=== PATIENT | female | born 1945 | race Caucasian/White ===

== ENCOUNTER 2019-01-02 21:45 | Inpatient (IN) | payer MEDICARE ==
[2019-01-02] MEDS ORDERED: Sodium Chloride 0.9% 1,000 ML IV SCH (22:30)
--- NOTE | 2019-01-02 22:30 | EDM.PDOC ---
ED HPI GENERAL MEDICAL PROBLEM - General Chief Complaint: Fever Stated Complaint: MEDICAL [facility] Time Seen by Provider: 01/02/19 22:00 Source of Information: Reports: EMS, RN Notes Reviewed History Limitations: Reports: Other (Confusion and expressive aphasia from previous stroke) - History of Present Illness INITIAL COMMENTS - FREE TEXT/NARRATIVE: 73-year-old [facility] patient with a fever today, confusion, hypoxia and one emesis. No history from the patient herself. She does deny shortness of breath or cough, but she also denies emesis and there is emesis documented in the nursing notes. Duration: Day(s): (Fever for one day) Associated Symptoms: Reports: Confusion, Fever/Chills, Malaise, Nausea/Vomiting , Weakness - Related Data Allergies Allergy/AdvReac Type Severity Reaction Status Date / Time lisinopril Allergy Cannot Verified 01/02/19 22:29 Remember Home Meds: Home Meds Furosemide [Lasix] 40 mg PO DAILY tablet 09/28/14 [Rx] Aspirin [Adult Low Dose Aspirin EC] 81 mg PO DAILY 07/02/15 [History] Carvedilol [Coreg] 3.125 mg PO BID 07/02/15 [History] Warfarin [Coumadin] 4 mg PO MoWeFr@13 07/02/15 [History] Warfarin [Coumadin] 6 mg PO SuTuThSa@1300 07/02/15 [History] Cholecalciferol (Vitamin D3) [Vitamin D3] 2,000 unit PO DAILY 01/02/19 [History] Escitalopram [Lexapro] 10 mg PO DAILY 01/02/19 [History] Losartan Potassium 75 mg PO DAILY 01/02/19 [History] Simvastatin [Zocor] 10 mg PO BEDTIME 01/02/19 [History] amLODIPine Besylate [Norvasc] 10 mg PO DAILY 01/02/19 [History] metFORMIN HCl [Metformin HCl] 500 mg PO DAILY 01/02/19 [History] Lactobacillus Rhamnosus GG [Culturelle] 1 cap PO BID 7 Days #14 cap 01/06/19 [Rx ] Levofloxacin 750 mg PO ASDIRECTED 7 Days #3 tablet 01/06/19 [Rx] Past Medical History HEENT History: Reports: Cataract, Hard of Hearing, Impaired Vision Cardiovascular History: Reports: High Cholesterol, Hypertension Genitourinary History: Reports: Urinary Incontinence Musculoskeletal History: Reports: Other (See Below) Other Musculoskeletal History: Osteomyelitis Neurological History: Reports: CVA Psychiatric History: Reports: Depression Endocrine/Metabolic History: Reports: Diabetes, Type II Other Dermatologic History: left 2nd toe osteo - Infectious Disease History Infectious Disease History: Reports: Chicken Pox Other Infectious Disease History: unknown - Past Surgical History HEENT Surgical History: Reports: Cataract Surgery, Oral Surgery, Tonsillectomy Social & Family History - Caffeine Use Caffeine Use: Reports: None ED ROS GENERAL - Review of Systems Review Of Systems: Unable To Obtain (Except for nursing notes) Constitutional: Reports: Fever, Chills Respiratory: Reports: Shortness of Breath GI/Abdominal: Reports: Vomiting Skin: Reports: Other (Significant erythema in the groin) Neurological: Reports: Confusion ED EXAM, GENERAL - Physical Exam Exam: See Below Exam Limited By: Other (Confusion, febrile) General Appearance: Alert, No Apparent Distress (Looks uncomfortable but not distressed) Eye Exam: Bilateral Eye: EOMI (No jaundice) Head: Atraumatic Respiratory/Chest: No Respiratory Distress, Lungs Clear Cardiovascular: Regular Rate, Rhythm GI/Abdominal: Other (Morbidly obese, she does not reactive with tenderness to palpation) Neurological: Alert, Confused Skin Exam: Warm, Dry, Other (Significant erythema in the groin, periurethral area and vulva) Course - Vital Signs Last Recorded V/S: Last Vital Signs Temp 98.4 F 01/06/19 10:08 Pulse 59 L 01/06/19 10:08 Resp 18 01/06/19 10:08 BP 139/50 L 01/06/19 10:08 Pulse Ox 93 L 01/06/19 12:00 - Orders/Labs/Meds Labs: Laboratory Tests 01/02/19 01/02/19 01/02/19 Range/Units 22:35 22:35 22:35 WBC 16.6 H (4.5-11.0) K/uL RBC 4.46 (3.30-5.50) M/uL Hgb 13.0 (12.0-15.0) g/dL Hct 39.5 (36.0-48.0) % MCV 89 (80-98) fL MCH 29 (27-31) pg MCHC 33 (32-36) % Plt Count 223 (150-400) K/uL Neut % (Auto) 92 H (36-66) % Lymph % (Auto) 3 L (24-44) % [place] % (Auto) 5 (2-6) % Eos % (Auto) 0 L (2-4) % Baso % (Auto) 0 (0-1) % PT (9.5-12.0) sec INR (0.80-1.20) Sodium 138 L (140-148) mmol/L Potassium 3.9 (3.6-5.2) mmol/L Chloride 102 (100-108) mmol/L Carbon Dioxide 24 (21-32) mmol/L Anion Gap 15.9 H (5.0-14.0) mmol/L BUN 30 H (7-18) mg/dL Creatinine 1.7 H (0.6-1.0) mg/dL Est Cr Clr Drug Dosing 29.09 mL/min Estimated GFR (MDRD) 30 L (>60) Glucose 203 H (74-106) mg/dL Lactic Acid 1.5 (0.4-2.0) mmol/L Calcium 8.6 (8.5-10.1) mg/dL Total Bilirubin 0.6 D (0.2-1.0) mg/dL AST 18 (15-37) U/L ALT 19 (12-78) U/L Alkaline Phosphatase 122 H (46-116) U/L Total Protein 6.9 (6.4-8.2) g/dL Albumin 3.3 L (3.4-5.0) g/dL Globulin 3.6 H (2.3-3.5) g/dL Albumin/Globulin Ratio 0.9 L (1.2-2.2) Urine Color (YELLOW) Urine Appearance (CLEAR) Urine pH (5.0-8.0) Ur Specific [place] (1.008-1.030) Urine Protein (NEGATIVE) mg/dL Urine Glucose (UA) (NEGATIVE) mg/dL Urine Ketones (NEGATIVE) mg/dL Urine Occult Blood (NEGATIVE) Urine Nitrite (NEGATIVE) Urine Bilirubin (NEGATIVE) Urine Urobilinogen (0.2-1.0) EU/dL Ur Leukocyte Esterase (NEGATIVE) Urine RBC (0-5) Urine WBC (0-5) Ur Epithelial Cells Amorphous Sediment Urine Bacteria Urine Mucus 01/02/19 01/02/19 Range/Units 22:35 23:26 WBC (4.5-11.0) K/uL RBC (3.30-5.50) M/uL Hgb (12.0-15.0) g/dL Hct (36.0-48.0) % MCV (80-98) fL MCH (27-31) pg MCHC (32-36) % Plt Count (150-400) K/uL Neut % (Auto) (36-66) % Lymph % (Auto) (24-44) % [place] % (Auto) (2-6) % Eos % (Auto) (2-4) % Baso % (Auto) (0-1) % PT 28.5 H (9.5-12.0) sec INR 2.80 H (0.80-1.20) Sodium (140-148) mmol/L Potassium (3.6-5.2) mmol/L Chloride (100-108) mmol/L Carbon Dioxide (21-32) mmol/L Anion Gap (5.0-14.0) mmol/L BUN (7-18) mg/dL Creatinine (0.6-1.0) mg/dL Est Cr Clr Drug Dosing mL/min Estimated GFR (MDRD) (>60) Glucose (74-106) mg/dL Lactic Acid (0.4-2.0) mmol/L Calcium (8.5-10.1) mg/dL Total Bilirubin (0.2-1.0) mg/dL AST (15-37) U/L ALT (12-78) U/L Alkaline Phosphatase (46-116) U/L Total Protein (6.4-8.2) g/dL Albumin (3.4-5.0) g/dL Globulin (2.3-3.5) g/dL Albumin/Globulin Ratio (1.2-2.2) Urine Color Yellow (YELLOW) Urine Appearance Cloudy A (CLEAR) Urine pH 5.5 (5.0-8.0) Ur Specific [place] 1.015 (1.008-1.030) Urine Protein 100 H (NEGATIVE) mg/dL Urine Glucose (UA) Normal (NEGATIVE) mg/dL Urine Ketones Negative (NEGATIVE) mg/dL Urine Occult Blood Large (NEGATIVE) Urine Nitrite Negative (NEGATIVE) Urine Bilirubin Negative (NEGATIVE) Urine Urobilinogen Normal (0.2-1.0) EU/dL Ur Leukocyte Esterase Small (NEGATIVE) Urine RBC 75-100 H (0-5) Urine WBC 0-5 (0-5) Ur Epithelial Cells Few Amorphous Sediment Few Urine Bacteria Many Urine Mucus Not seen Meds: Medications Discontinued Medications Generic Name Dose Route Start Last Admin Trade Name Freq PRN Reason Stop Dose Admin Acetaminophen 650 mg 01/02/19 23:37 01/03/19 01:53 Tylenol PO 650 mg Q4H PRN Administration Pain (Mild 1-3)/fever Albuterol 2.5 mg 01/05/19 21:42 Proventil Neb Soln NEB Q4H PRN Shortness of Breath Amlodipine Besylate 10 mg 01/03/19 10:15 01/06/19 08:31 Norvasc PO 10 mg DAILY JASON Administration Carvedilol 3.125 mg 01/03/19 10:15 01/06/19 08:30 Coreg PO 3.125 mg BID JASON Administration Cholecalciferol 50 mcg 01/03/19 10:15 01/06/19 08:31 Vitamin D3 PO 50 mcg DAILY JASON Administration Escitalopram Oxalate 10 mg 01/03/19 10:15 01/06/19 08:30 Lexapro PO 10 mg DAILY JASON Administration Furosemide 40 mg 01/03/19 10:15 01/06/19 08:30 Lasix PO 40 mg DAILY JASON Administration Sodium Chloride 1,000 mls @ 500 mls/hr 01/02/19 22:30 01/02/19 22:45 Normal Saline IV 500 mls/hr ASDIRECTED JASON Administration Sodium Chloride 1,000 mls @ 150 mls/hr 01/02/19 23:45 01/03/19 12:14 Normal Saline IV 150 mls/hr ASDIRECTED JASON Administration Vancomycin HCl 1.5 gm/ Sodium 250 mls @ 150 mls/hr 01/02/19 23:45 01/03/19 02 :07 Chloride IV 150 mls/hr Q12H JASON Administration Piperacillin Sod/Tazobactam 50 mls @ 100 mls/hr 01/03/19 00:15 01/03/19 05:42 Sod 3.375 gm/ Sodium Chloride IV 100 mls/hr Q6H JASON Administration Piperacillin/Tazobactam/ 50 mls @ 100 mls/hr 01/03/19 12:00 01/05/19 05:52 Dextrose 2.25 gm/ Premix IV 100 mls/hr Q6H JASON Administration Vancomycin HCl 1.65 gm/ Sodium 250 mls @ 150 mls/hr 01/03/19 22:00 01/04/19 21:46 Chloride IV 150 mls/hr Q24H JASON Administration Levofloxacin/Dextrose 750 mg/ 150 mls @ 150 mls/hr 01/04/19 21:00 01/04/19 23 :18 Premix IV 150 mls/hr Q48H JASON Administration Insulin Human Lispro 0 unit 01/03/19 07:00 01/06/19 11:37 Humalog SUBCUT Not Given QIDACANDBED [facility] Protocol Lactobacillus Rhamnosus 1 cap 01/04/19 09:30 01/06/19 08:30 Culturelle PO 1 cap BID JASON Administration Levofloxacin 250 mg/ 750 mg 01/06/19 07:30 01/06/19 07:42 Levofloxacin 500 mg PO 750 mg Q48H JASON Administration Lidocaine HCl 10 ml 01/02/19 23:11 01/02/19 23:29 Xylocaine 2% Jelly MUCMEM 01/02/19 23:12 10 ml ONETIME ONE Administration Losartan Potassium 75 mg 01/03/19 10:15 01/06/19 09:48 Cozaar PO 75 mg DAILY JASON Administration Ondansetron HCl 4 mg 01/02/19 23:37 Zofran IV Q4H PRN Nausea/Vomiting Ondansetron HCl 4 mg 01/04/19 09:19 Zofran Odt PO Q6H PRN Nausea/Vomiting Pantoprazole Sodium 40 mg 01/02/19 23:45 01/03/19 01:42 Protonix Iv IV 40 mg Q24H JASON Administration Pantoprazole Sodium 40 mg 01/03/19 21:00 01/05/19 20:36 Protonix PO 40 mg BEDTIME JASON Administration Potassium Chloride 40 meq 01/06/19 08:00 01/06/19 09:48 Klor-Con M20 PO 01/06/19 08:01 40 meq ONETIME ONE Administration Senna/Docusate Sodium 1 tab 01/02/19 23:37 Senna Plus PO BID PRN Constipation Simvastatin 10 mg 01/03/19 21:00 01/05/19 20:36 Zocor PO 10 mg BEDTIME JASON Administration Warfarin Sodium 4 mg 01/03/19 13:00 01/06/19 13:13 Coumadin PO 4 mg MoWeFr@1300 [facility] Administration Warfarin Sodium 5 mg/ Warfarin 6 mg 01/04/19 13:00 01/05/19 13:48 Sodium 1 mg PO 6 mg SuTuThSa@1300 [facility] Administration - Re-Assessments/Exams Free Text/Narrative Re-Assessment/Exam: 01/02/19 22:29 A mini catheter UA was attempted which was not tolerated by the patient to to her inflammation in the groin. A CBC, CMP, lactic acid and blood cultures were obtained as well as an INR. Portable chest x-ray ordered. IV was started and hydration with normal saline. UA was obtained. Many bacteria but no WBC. Dr Mccoy was consulted for admission for groin cellulitis, fever will need IV antibiotics and fluid support. Departure - Departure Time of Disposition: 00:58 Disposition: Admitted As Inpatient 67 Clinical Impression: Cellulitis Qualifiers: Site of cellulitis: other site Qualified Code(s): L03.818 - Cellulitis of other sites Blood in the urine Qualifiers: Hematuria type: unspecified type Qualified Code(s): R31.9 - Hematuria, unspecified Fever Qualifiers: Fever type: due to other condition Qualified Code(s): R50.81 - Fever presenting with conditions classified elsewhere - Discharge Information
[2019-01-02] MEDS ORDERED: Lidocaine 2% Jelly 10 ML Urojet MUCMEM ONE (23:11)
--- NOTE | 2019-01-02 23:16 | CRLCR ---
INDICATION: Fever TECHNIQUE: Chest 1 views COMPARISON: September 26, 2014 FINDINGS: Cardiovascular and mediastinum: Heart size and vasculature are normal in caliber and appearance. Lungs and pleural spaces: Lungs are clear except for a stable left perihilar granuloma. No sign of infiltrate or mass. No sign of pleural effusion. No pneumothorax. Bones and soft tissues: No significant findings. IMPRESSION: No acute findings and no significant changes from the prior exam. Dictated by Louie Stahl MD @ Jan 02 2019 11:13PM Signed by Dr. Louie Stahl @ Jan 02 2019 11:14PM
[2019-01-02] MEDS ORDERED: Ondansetron 4 MG/2 ML SDV IV PRN (23:37)
[2019-01-02] MEDS ORDERED: Acetaminophen 325 MG Tab PO PRN (23:37)
[2019-01-02] MEDS ORDERED: Pantoprazole 40 MG Vial IV SCH (23:45)
[2019-01-02] MEDS ORDERED: cefTRIAXone 2 GM in Sodium Chloride 0.9% 50 ML IV SCH (23:45)
[2019-01-03] MEDS: Sodium Chloride 0.9% 1,000 ML IV SCH ×2 (01:31→12:14)
[2019-01-03] MEDS: Piperacillin/Tazobactam 3.375 GM in Sodium Chloride 0.9% 50 ML IV SCH ×2 (01:32→05:42)
--- NOTE | 2019-01-03 09:09 | PCM.HP.2 ---
H&P History of Present Illness - General Date of Service: 01/02/19 Admit Problem/Dx: Admission Diagnosis/Problem Admission Diagnosis/Problem Cellulitis Source of Information: Patient History Limitations: Reports: No Limitations - History of Present Illness Initial Comments - Free Text/Narative: 73-year-old female with past medical history of peripheral vascular disease, on Coumadin medication, diabetes on metformin medication, hypertension, hyperlipidemia, CKD, VS MRSA infection, venous insufficiency came to the ED with a concerns of one episode of vomiting associated with altered mental status. Patient is a [facility] resident. Patient has confusional state associated with temperature 101 with that concerns patient transferred to the ED Patient denies any chest pain, exertional chest pain, breathing difficulty, upper respiratory infection symptoms, cough, congestion, diarrhea, constipation. Patient had 2 episodes of vomiting. Patient lab results showed WBC count is elevated along with a left shift. With lactic acid levels are 1.5. Patient is DNR/DNI. Patient received thousand mL of IV fluids in the ED. Other review of systems are not significant. - Related Data Allergies/Adverse Reactions: Allergies Allergy/AdvReac Type Severity Reaction Status Date / Time lisinopril Allergy Cannot Verified 01/02/19 22:29 Remember Home Medications: Home Meds Furosemide [Lasix] 40 mg PO DAILY tablet 09/28/14 [Rx] Aspirin [Adult Low Dose Aspirin EC] 81 mg PO DAILY 07/02/15 [History] Carvedilol [Coreg] 3.125 mg PO BID 07/02/15 [History] Warfarin [Coumadin] 4 mg PO MoWeFr@13 07/02/15 [History] Warfarin [Coumadin] 6 mg PO SuTuThSa@1300 07/02/15 [History] Cholecalciferol (Vitamin D3) [Vitamin D3] 2,000 unit PO DAILY 01/02/19 [History] Escitalopram [Lexapro] 10 mg PO DAILY 01/02/19 [History] Losartan Potassium 75 mg PO DAILY 01/02/19 [History] Simvastatin [Zocor] 10 mg PO BEDTIME 01/02/19 [History] amLODIPine Besylate [Norvasc] 10 mg PO DAILY 01/02/19 [History] metFORMIN HCl [Metformin HCl] 500 mg PO DAILY 01/02/19 [History] Past Medical History HEENT History: Reports: Cataract, Hard of Hearing, Impaired Vision Cardiovascular History: Reports: High Cholesterol, Hypertension, Other (See Below) Other Cardiovascular History: nonrheumatic aortic valve stenosis Gastrointestinal History: Reports: None Genitourinary History: Reports: Renal Disease, Urinary Incontinence Musculoskeletal History: Reports: Other (See Below) Other Musculoskeletal History: Osteomyelitis Neurological History: Reports: CVA, Neuropathy, Diabetic Psychiatric History: Reports: Depression Endocrine/Metabolic History: Reports: Diabetes, Type II, Obesity/BMI 30+ Hematologic History: Reports: Anemia Dermatologic History: Reports: Other (See Below) Other Dermatologic History: left 2nd toe osteo - Infectious Disease History Infectious Disease History: Reports: Chicken Pox Other Infectious Disease History: unknown - Past Surgical History Head Surgeries/Procedures: Reports: None HEENT Surgical History: Reports: Cataract Surgery, Oral Surgery, Tonsillectomy Cardiovascular Surgical History: Reports: None GI Surgical History: Reports: Colonoscopy Female Surgical History: Reports: None Endocrine Surgical History: Reports: None Neurological Surgical History: Reports: None Dermatological Surgical History: Reports: None Social & Family History - Family History Family Medical History: Noncontributory - Tobacco Use Smoking Status *Q: Never Smoker Second Hand Smoke Exposure: No - Caffeine Use Caffeine Use: Reports: Soda, Tea - Recreational Drug Use Recreational Drug Use: No H&P Review of Systems - Review of Systems: Review Of Systems: See Below General: Reports: Fever, Chills, Malaise, Weakness, Fatigue. Denies: Night Sweats, Diaphoresis Pulmonary: Denies: Shortness of Breath, Wheezing Cardiovascular: Denies: Chest Pain, Palpitations, Dyspnea on Exertion Gastrointestinal: Denies: Abdominal Pain, Bloody Stool, Constipation, Diarrhea Genitourinary: Denies: Dysuria, Frequency, Burning Musculoskeletal: Denies: Neck Pain, Shoulder Pain Skin: Denies: Cyanosis, Jaundice Psychiatric: Denies: Confusion, Depression Neurological: Denies: Confusion, Dizziness Hematologic/Lymphatic: Reports: Anemia. Denies: Easy Bleeding, Easy Bruising Exam - Exam Exam: See Below - Vital Signs Vital Signs: Last Vital Signs Temp 35.7 C 01/03/19 07:00 Pulse 57 L 01/03/19 07:00 Resp 18 01/03/19 07:00 BP 123/61 01/03/19 07:00 Pulse Ox 93 L 01/03/19 07:37 Weight: 124.738 kg - Exam General: Alert. No: Oriented Neck: Supple, Trachea Midline Lungs: Clear to Auscultation, Normal Respiratory Effort Cardiovascular: Regular Rate, Regular Rhythm GI/Abdominal Exam: Normal Bowel Sounds, Soft, Non-Tender, No Organomegaly, No Distention, No Abnormal Bruit Back Exam: Normal Inspection, Full Range of Motion Extremities: Normal Inspection, Other (status post amputation of toe). No: Non- Tender Skin: Warm, Dry (Maculopapular erythematic rash present on the perineal area, warm to touch, tenderness is positive) Psychiatric: Alert, Normal Affect, Normal Mood - Patient Data Lab Results Last 24 hrs: Laboratory Results - last 24 hr 01/02/19 01/02/19 01/02/19 Range/Units 22:35 22:35 22:35 WBC 16.6 H (4.5-11.0) K/uL RBC 4.46 (3.30-5.50) M/uL Hgb 13.0 (12.0-15.0) g/dL Hct 39.5 (36.0-48.0) % MCV 89 (80-98) fL MCH 29 (27-31) pg MCHC 33 (32-36) % Plt Count 223 (150-400) K/uL Neut % (Auto) 92 H (36-66) % Lymph % (Auto) 3 L (24-44) % [place] % (Auto) 5 (2-6) % Eos % (Auto) 0 L (2-4) % Baso % (Auto) 0 (0-1) % PT (9.5-12.0) sec INR (0.80-1.20) Sodium 138 L (140-148) mmol/L Potassium 3.9 (3.6-5.2) mmol/L Chloride 102 (100-108) mmol/L Carbon Dioxide 24 (21-32) mmol/L Anion Gap 15.9 H (5.0-14.0) mmol/L BUN 30 H (7-18) mg/dL Creatinine 1.7 H (0.6-1.0) mg/dL Est Cr Clr Drug Dosing 29.09 mL/min Estimated GFR (MDRD) 30 L (>60) Glucose 203 H (74-106) mg/dL Lactic Acid 1.5 (0.4-2.0) mmol/L Calcium 8.6 (8.5-10.1) mg/dL Total Bilirubin 0.6 D (0.2-1.0) mg/dL AST 18 (15-37) U/L ALT 19 (12-78) U/L Alkaline Phosphatase 122 H (46-116) U/L Total Protein 6.9 (6.4-8.2) g/dL Albumin 3.3 L (3.4-5.0) g/dL Globulin 3.6 H (2.3-3.5) g/dL Albumin/Globulin Ratio 0.9 L (1.2-2.2) Urine Color (YELLOW) Urine Appearance (CLEAR) Urine pH (5.0-8.0) Ur Specific [place] (1.008-1.030) Urine Protein (NEGATIVE) mg/dL Urine Glucose (UA) (NEGATIVE) mg/dL Urine Ketones (NEGATIVE) mg/dL Urine Occult Blood (NEGATIVE) Urine Nitrite (NEGATIVE) Urine Bilirubin (NEGATIVE) Urine Urobilinogen (0.2-1.0) EU/dL Ur Leukocyte Esterase (NEGATIVE) Urine RBC (0-5) Urine WBC (0-5) Ur Epithelial Cells Amorphous Sediment Urine Bacteria Urine Mucus 01/02/19 01/02/19 01/03/19 Range/Units 22:35 23:26 04:00 WBC 17.4 H (4.5-11.0) K/uL RBC 3.80 (3.30-5.50) M/uL Hgb 11.2 L (12.0-15.0) g/dL Hct 34.4 L (36.0-48.0) % MCV 91 (80-98) fL MCH 30 (27-31) pg MCHC 33 (32-36) % Plt Count 210 (150-400) K/uL Neut % (Auto) 91 H (36-66) % Lymph % (Auto) 4 L (24-44) % [place] % (Auto) 5 (2-6) % Eos % (Auto) 0 L (2-4) % Baso % (Auto) 0 (0-1) % PT 28.5 H (9.5-12.0) sec INR 2.80 H (0.80-1.20) Sodium (140-148) mmol/L Potassium (3.6-5.2) mmol/L Chloride (100-108) mmol/L Carbon Dioxide (21-32) mmol/L Anion Gap (5.0-14.0) mmol/L BUN (7-18) mg/dL Creatinine (0.6-1.0) mg/dL Est Cr Clr Drug Dosing mL/min Estimated GFR (MDRD) (>60) Glucose (74-106) mg/dL Lactic Acid (0.4-2.0) mmol/L Calcium (8.5-10.1) mg/dL Total Bilirubin (0.2-1.0) mg/dL AST (15-37) U/L ALT (12-78) U/L Alkaline Phosphatase (46-116) U/L Total Protein (6.4-8.2) g/dL Albumin (3.4-5.0) g/dL Globulin (2.3-3.5) g/dL Albumin/Globulin Ratio (1.2-2.2) Urine Color Yellow (YELLOW) Urine Appearance Cloudy A (CLEAR) Urine pH 5.5 (5.0-8.0) Ur Specific [place] 1.015 (1.008-1.030) Urine Protein 100 H (NEGATIVE) mg/dL Urine Glucose (UA) Normal (NEGATIVE) mg/dL Urine Ketones Negative (NEGATIVE) mg/dL Urine Occult Blood Large (NEGATIVE) Urine Nitrite Negative (NEGATIVE) Urine Bilirubin Negative (NEGATIVE) Urine Urobilinogen Normal (0.2-1.0) EU/dL Ur Leukocyte Esterase Small (NEGATIVE) Urine RBC 75-100 H (0-5) Urine WBC 0-5 (0-5) Ur Epithelial Cells Few Amorphous Sediment Few Urine Bacteria Many Urine Mucus Not seen 01/03/19 Range/Units 04:00 WBC (4.5-11.0) K/uL RBC (3.30-5.50) M/uL Hgb (12.0-15.0) g/dL Hct (36.0-48.0) % MCV (80-98) fL MCH (27-31) pg MCHC (32-36) % Plt Count (150-400) K/uL Neut % (Auto) (36-66) % Lymph % (Auto) (24-44) % [place] % (Auto) (2-6) % Eos % (Auto) (2-4) % Baso % (Auto) (0-1) % PT (9.5-12.0) sec INR (0.80-1.20) Sodium 141 (140-148) mmol/L Potassium 3.7 (3.6-5.2) mmol/L Chloride 106 (100-108) mmol/L Carbon Dioxide 26 (21-32) mmol/L Anion Gap 8.7 (5.0-14.0) mmol/L BUN 29 H (7-18) mg/dL Creatinine 1.7 H (0.6-1.0) mg/dL Est Cr Clr Drug Dosing 29.01 mL/min Estimated GFR (MDRD) 30 L (>60) Glucose 179 H (74-106) mg/dL Lactic Acid (0.4-2.0) mmol/L Calcium 8.2 L (8.5-10.1) mg/dL Total Bilirubin 0.6 (0.2-1.0) mg/dL AST 19 (15-37) U/L ALT 17 (12-78) U/L Alkaline Phosphatase 95 (46-116) U/L Total Protein 5.9 L (6.4-8.2) g/dL Albumin 2.8 L (3.4-5.0) g/dL Globulin 3.1 (2.3-3.5) g/dL Albumin/Globulin Ratio 0.9 L (1.2-2.2) Urine Color (YELLOW) Urine Appearance (CLEAR) Urine pH (5.0-8.0) Ur Specific [place] (1.008-1.030) Urine Protein (NEGATIVE) mg/dL Urine Glucose (UA) (NEGATIVE) mg/dL Urine Ketones (NEGATIVE) mg/dL Urine Occult Blood (NEGATIVE) Urine Nitrite (NEGATIVE) Urine Bilirubin (NEGATIVE) Urine Urobilinogen (0.2-1.0) EU/dL Ur Leukocyte Esterase (NEGATIVE) Urine RBC (0-5) Urine WBC (0-5) Ur Epithelial Cells Amorphous Sediment Urine Bacteria Urine Mucus Result Diagrams: 01/03/19 04:00 01/03/19 04:00 - Problem List (1) Cellulitis SNOMED Code(s): 436222246 ICD Code: L03.90 - CELLULITIS, UNSPECIFIED Status: Acute Current Visit: Yes (2) SIRS (systemic inflammatory response syndrome) SNOMED Code(s): 601316842 ICD Code: R65.10 - SIRS OF NON-INFECTIOUS ORIGIN W/O ACUTE ORGAN DYSFUNCTION Status: Acute Current Visit: Yes (3) Hypertension SNOMED Code(s): 08235864 ICD Code: I10 - ESSENTIAL (PRIMARY) HYPERTENSION Status: Acute Current Visit: Yes (4) Hyperlipemia SNOMED Code(s): 00175992 ICD Code: E78.5 - HYPERLIPIDEMIA, UNSPECIFIED Status: Acute Current Visit : Yes (5) MRSA (methicillin resistant Staphylococcus aureus) SNOMED Code(s): 917523629 ICD Code: A49.02 - METHICILLIN RESIS STAPH INFECTION, UNSP SITE Status: Acute Current Visit: Yes (6) CKD (chronic kidney disease) SNOMED Code(s): 243179541 ICD Code: N18.9 - CHRONIC KIDNEY DISEASE, UNSPECIFIED Status: Acute Current Visit: Yes (7) Venous insufficiency SNOMED Code(s): 65047098 ICD Code: I87.2 - VENOUS INSUFFICIENCY (CHRONIC) (PERIPHERAL) Status: Acute Current Visit: Yes (8) Anticoagulated on Coumadin SNOMED Code(s): 85345495 ICD Code: Z51.81 - ENCOUNTER FOR THERAPEUTIC DRUG LEVEL MONITORING; Z79.01 - TALENT ACQUISITION PROGRAM MANAGER (CURRENT) USE OF ANTICOAGULANTS Status: Acute Priority: Medium Current Visit: No (9) Status post CVA SNOMED Code(s): 702795976 ICD Code: Z86.73 - PRSNL HX OF TIA (TIA), AND CEREB INFRC W/O RESID DEFICITS Status: Acute Priority: Medium Current Visit: No (10) Amputated toe SNOMED Code(s): 407326387 ICD Code: Z89.429 - ACQUIRED ABSENCE OF OTHER TOE(S), UNSPECIFIED SIDE Status: Chronic Current Visit: No Problem List Initiated/Reviewed/Updated: Yes Orders Last 24hrs: Active Orders 24 hr Category Date Time Status Patient Status [ADT] Routine ADT 01/02/19 23:38 Active Accu Check [Blood Glucose Check, Bedside] [RC] Care 01/02/19 23:51 Active WITHMEALSANDBED Bedrest Bedside Commode [RC] ASDIRECTED Care 01/02/19 23:37 Active Communication Order [RC] ROUTINE Care 01/02/19 23:49 Active Communication Order [RC] ROUTINE Care 01/02/19 23:54 Active Dietary Supplements [RC] BIDMEALS Care 01/03/19 00:07 Active Height and Weight [RC] DAILY Care 01/02/19 23:37 Active Intake and Output [RC] QSHIFT Care 01/02/19 23:39 Active Oxygen Therapy [RC] PRN Care 01/02/19 23:38 Active Pulse Oximetry [RC] PRN Care 01/02/19 23:40 Active VTE/DVT Education [RC] Per Unit Routine Care 01/02/19 23:38 Active Vital Signs [RC] Q4H Care 01/02/19 23:38 Active OT Evaluation and Treatment [CONS] Routine Cons 01/02/19 23:37 Active PT Evaluation and Treatment [CONS] Routine Cons 01/02/19 23:37 Active 2 Gram Sodium Diet [DIET] Diet 01/03/19 Breakfast Active Consistent Carbohydrate Diet [DIET] Diet 01/03/19 Breakfast Active CULTURE BLOOD [BC] Urgent Lab 01/02/19 22:35 Received CULTURE BLOOD [BC] Urgent Lab 01/02/19 22:40 Received CULTURE URINE [RM] Routine Lab 01/03/19 00:01 Received Acetaminophen [Tylenol] Med 01/02/19 23:37 Active 650 mg PO Q4H PRN Docusate Sodium/Sennosides [Senna Plus] Med 01/02/19 23:37 Active 1 tab PO BID PRN Insulin Lispro [HumaLOG] Med 01/03/19 07:00 Active See Protocol SUBCUT QIDACANDBED Ondansetron [Zofran] Med 01/02/19 23:37 Active 4 mg IV Q4H PRN Pantoprazole [ProTONIX IV] Med 01/02/19 23:45 Active 40 mg IV Q24H Piperacillin/Tazobactam/Dext [Zosyn in Dextrose Iso- Med 01/03/19 12:00 Active Osmotic] 2.25 gm Premix Bag 1 bag IV Q6H Sodium Chloride 0.9% [Normal Saline] 1,000 ml Med 01/02/19 23:45 Active IV ASDIRECTED Vancomycin 1.8 gm Med 01/03/19 22:00 Active Sodium Chloride 0.9% [Normal Saline] 250 ml IV Q24H Blood Culture x2 Reflex Set [OM.PC] Urgent Oth 01/02/19 22:24 Ordered Resuscitation Status Routine Resus Stat 01/02/19 23:37 Ordered Medication Orders Acetaminophen (Tylenol) 650 mg PO Q4H PRN PRN Reason: Pain (Mild 1-3)/fever Last Admin: 01/03/19 01:53 Dose: 650 mg Sodium Chloride (Normal Saline) 1,000 mls @ 150 mls/hr IV ASDIRECTED JASON Last Admin: 01/03/19 01:31 Dose: 150 mls/hr Vancomycin HCl 1.8 gm/ Sodium (Chloride) 250 mls @ 150 mls/hr IV Q24H JASON Piperacillin/Tazobactam/ (Dextrose 2.25 gm/ Premix) 50 mls @ 100 mls/hr IV Q6H JASON Insulin Human Lispro (Humalog) 0 unit SUBCUT QIDACANDBED [facility]; Protocol Ondansetron HCl (Zofran) 4 mg IV Q4H PRN PRN Reason: Nausea/Vomiting Pantoprazole Sodium (Protonix Iv) 40 mg IV Q24H [facility] Last Admin: 01/03/19 01:42 Dose: 40 mg Senna/Docusate Sodium (Senna Plus) 1 tab PO BID PRN PRN Reason: Constipation Assessment/Plan Comment:: 73-year-old female with past medical history of CVA, hypertension, hyperlipidemia, peripheral vascular disease, CKD, diabetes, previous MRSA infection came to the ED with a concerns of confusion along with fever and admitted in the hospital with a diagnosis of cellulitis as inpatient status. Patient WBC count is elevated 16.0, lactic acid is 1.5 Patient has significant erythematic rash present on the perineal area Patient urine did not show any infection INR within normal limits Seems like cellulitis We will place her on Zosyn and vancomycin IV fluids maintenance 150 mL/h Hemoglobin is at baseline Blood pressures are reassuring We will continue home medications We will hold metformin, aspirin medication Sliding scale insulin for diabetes CBC CMP tomorrow DVT prophylaxis Coumadin IV fluids 150 mL/h normal saline Diet consistent carbohydrate diet, low-sodium diet Soto catheter not indicated GI prophylaxis pantoprazole 40 mg once daily DNR/DNI CODE STATUS Inpatient status Note: Portions of this document may have been created with a voice recognition software. I have reviewed and edited these portions carefully but occasionally errors in wheelchair driver do occur and are missed with the editing.
--- NOTE | 2019-01-03 09:10 | PCM.PN ---
- General Info Date of Service: 01/03/19 Admission Dx/Problem (Free Text): Admission Diagnosis/Problem Admission Diagnosis/Problem Cellulitis Subjective Update: No overnight issues. Patient slept very well. No fevers during overnight stay. No further episodes of vomiting. Patient denies any chest pain, exertional chest pain, breathing difficulty. No concerns from the nursing staff. Patient received 1 dose of vancomycin, Zosyn medication. Other review of systems are not significant. Functional Status: Reports: Pain Controlled - Patient Data Vitals - Most Recent: Last Vital Signs Temp 35.7 C 01/03/19 07:00 Pulse 57 L 01/03/19 07:00 Resp 18 01/03/19 07:00 BP 123/61 01/03/19 07:00 Pulse Ox 93 L 01/03/19 07:37 Weight - Most Recent: 124.738 kg I&O - Last 24 Hours: Intake & Output 01/02/19 01/03/19 01/03/19 22:59 06:59 14:59 Intake Total 650 Balance 650 Lab Results Last 24 Hours: Laboratory Results - last 24 hr 01/02/19 01/02/19 01/02/19 Range/Units 22:35 22:35 22:35 WBC 16.6 H (4.5-11.0) K/uL RBC 4.46 (3.30-5.50) M/uL Hgb 13.0 (12.0-15.0) g/dL Hct 39.5 (36.0-48.0) % MCV 89 (80-98) fL MCH 29 (27-31) pg MCHC 33 (32-36) % Plt Count 223 (150-400) K/uL Neut % (Auto) 92 H (36-66) % Lymph % (Auto) 3 L (24-44) % [place] % (Auto) 5 (2-6) % Eos % (Auto) 0 L (2-4) % Baso % (Auto) 0 (0-1) % PT (9.5-12.0) sec INR (0.80-1.20) Sodium 138 L (140-148) mmol/L Potassium 3.9 (3.6-5.2) mmol/L Chloride 102 (100-108) mmol/L Carbon Dioxide 24 (21-32) mmol/L Anion Gap 15.9 H (5.0-14.0) mmol/L BUN 30 H (7-18) mg/dL Creatinine 1.7 H (0.6-1.0) mg/dL Est Cr Clr Drug Dosing 29.09 mL/min Estimated GFR (MDRD) 30 L (>60) Glucose 203 H (74-106) mg/dL Lactic Acid 1.5 (0.4-2.0) mmol/L Calcium 8.6 (8.5-10.1) mg/dL Total Bilirubin 0.6 D (0.2-1.0) mg/dL AST 18 (15-37) U/L ALT 19 (12-78) U/L Alkaline Phosphatase 122 H (46-116) U/L Total Protein 6.9 (6.4-8.2) g/dL Albumin 3.3 L (3.4-5.0) g/dL Globulin 3.6 H (2.3-3.5) g/dL Albumin/Globulin Ratio 0.9 L (1.2-2.2) Urine Color (YELLOW) Urine Appearance (CLEAR) Urine pH (5.0-8.0) Ur Specific [place] (1.008-1.030) Urine Protein (NEGATIVE) mg/dL Urine Glucose (UA) (NEGATIVE) mg/dL Urine Ketones (NEGATIVE) mg/dL Urine Occult Blood (NEGATIVE) Urine Nitrite (NEGATIVE) Urine Bilirubin (NEGATIVE) Urine Urobilinogen (0.2-1.0) EU/dL Ur Leukocyte Esterase (NEGATIVE) Urine RBC (0-5) Urine WBC (0-5) Ur Epithelial Cells Amorphous Sediment Urine Bacteria Urine Mucus 01/02/19 01/02/19 01/03/19 Range/Units 22:35 23:26 04:00 WBC 17.4 H (4.5-11.0) K/uL RBC 3.80 (3.30-5.50) M/uL Hgb 11.2 L (12.0-15.0) g/dL Hct 34.4 L (36.0-48.0) % MCV 91 (80-98) fL MCH 30 (27-31) pg MCHC 33 (32-36) % Plt Count 210 (150-400) K/uL Neut % (Auto) 91 H (36-66) % Lymph % (Auto) 4 L (24-44) % [place] % (Auto) 5 (2-6) % Eos % (Auto) 0 L (2-4) % Baso % (Auto) 0 (0-1) % PT 28.5 H (9.5-12.0) sec INR 2.80 H (0.80-1.20) Sodium (140-148) mmol/L Potassium (3.6-5.2) mmol/L Chloride (100-108) mmol/L Carbon Dioxide (21-32) mmol/L Anion Gap (5.0-14.0) mmol/L BUN (7-18) mg/dL Creatinine (0.6-1.0) mg/dL Est Cr Clr Drug Dosing mL/min Estimated GFR (MDRD) (>60) Glucose (74-106) mg/dL Lactic Acid (0.4-2.0) mmol/L Calcium (8.5-10.1) mg/dL Total Bilirubin (0.2-1.0) mg/dL AST (15-37) U/L ALT (12-78) U/L Alkaline Phosphatase (46-116) U/L Total Protein (6.4-8.2) g/dL Albumin (3.4-5.0) g/dL Globulin (2.3-3.5) g/dL Albumin/Globulin Ratio (1.2-2.2) Urine Color Yellow (YELLOW) Urine Appearance Cloudy A (CLEAR) Urine pH 5.5 (5.0-8.0) Ur Specific [place] 1.015 (1.008-1.030) Urine Protein 100 H (NEGATIVE) mg/dL Urine Glucose (UA) Normal (NEGATIVE) mg/dL Urine Ketones Negative (NEGATIVE) mg/dL Urine Occult Blood Large (NEGATIVE) Urine Nitrite Negative (NEGATIVE) Urine Bilirubin Negative (NEGATIVE) Urine Urobilinogen Normal (0.2-1.0) EU/dL Ur Leukocyte Esterase Small (NEGATIVE) Urine RBC 75-100 H (0-5) Urine WBC 0-5 (0-5) Ur Epithelial Cells Few Amorphous Sediment Few Urine Bacteria Many Urine Mucus Not seen 01/03/19 Range/Units 04:00 WBC (4.5-11.0) K/uL RBC (3.30-5.50) M/uL Hgb (12.0-15.0) g/dL Hct (36.0-48.0) % MCV (80-98) fL MCH (27-31) pg MCHC (32-36) % Plt Count (150-400) K/uL Neut % (Auto) (36-66) % Lymph % (Auto) (24-44) % [place] % (Auto) (2-6) % Eos % (Auto) (2-4) % Baso % (Auto) (0-1) % PT (9.5-12.0) sec INR (0.80-1.20) Sodium 141 (140-148) mmol/L Potassium 3.7 (3.6-5.2) mmol/L Chloride 106 (100-108) mmol/L Carbon Dioxide 26 (21-32) mmol/L Anion Gap 8.7 (5.0-14.0) mmol/L BUN 29 H (7-18) mg/dL Creatinine 1.7 H (0.6-1.0) mg/dL Est Cr Clr Drug Dosing 29.01 mL/min Estimated GFR (MDRD) 30 L (>60) Glucose 179 H (74-106) mg/dL Lactic Acid (0.4-2.0) mmol/L Calcium 8.2 L (8.5-10.1) mg/dL Total Bilirubin 0.6 (0.2-1.0) mg/dL AST 19 (15-37) U/L ALT 17 (12-78) U/L Alkaline Phosphatase 95 (46-116) U/L Total Protein 5.9 L (6.4-8.2) g/dL Albumin 2.8 L (3.4-5.0) g/dL Globulin 3.1 (2.3-3.5) g/dL Albumin/Globulin Ratio 0.9 L (1.2-2.2) Urine Color (YELLOW) Urine Appearance (CLEAR) Urine pH (5.0-8.0) Ur Specific [place] (1.008-1.030) Urine Protein (NEGATIVE) mg/dL Urine Glucose (UA) (NEGATIVE) mg/dL Urine Ketones (NEGATIVE) mg/dL Urine Occult Blood (NEGATIVE) Urine Nitrite (NEGATIVE) Urine Bilirubin (NEGATIVE) Urine Urobilinogen (0.2-1.0) EU/dL Ur Leukocyte Esterase (NEGATIVE) Urine RBC (0-5) Urine WBC (0-5) Ur Epithelial Cells Amorphous Sediment Urine Bacteria Urine Mucus Med Orders - Current: Current Medications Acetaminophen (Tylenol) 650 mg PO Q4H PRN PRN Reason: Pain (Mild 1-3)/fever Last Admin: 01/03/19 01:53 Dose: 650 mg Sodium Chloride (Normal Saline) 1,000 mls @ 150 mls/hr IV ASDIRECTED [facility] Last Admin: 01/03/19 01:31 Dose: 150 mls/hr Vancomycin HCl 1.8 gm/ Sodium (Chloride) 250 mls @ 150 mls/hr IV Q24H [facility] Piperacillin/Tazobactam/ (Dextrose 2.25 gm/ Premix) 50 mls @ 100 mls/hr IV Q6H [facility] Insulin Human Lispro (Humalog) 0 unit SUBCUT QIDACANDBED [facility]; Protocol Ondansetron HCl (Zofran) 4 mg IV Q4H PRN PRN Reason: Nausea/Vomiting Pantoprazole Sodium (Protonix Iv) 40 mg IV Q24H [facility] Last Admin: 01/03/19 01:42 Dose: 40 mg Senna/Docusate Sodium (Senna Plus) 1 tab PO BID PRN PRN Reason: Constipation Discontinued Medications Sodium Chloride (Normal Saline) 1,000 mls @ 500 mls/hr IV ASDIRECTED [facility] Last Admin: 01/02/19 22:45 Dose: 500 mls/hr Vancomycin HCl 1.5 gm/ Sodium (Chloride) 250 mls @ 150 mls/hr IV Q12H [facility] Last Admin: 01/03/19 02:07 Dose: 150 mls/hr Piperacillin Sod/Tazobactam (Sod 3.375 gm/ Sodium Chloride) 50 mls @ 100 mls/ hr IV Q6H [facility] Last Admin: 01/03/19 05:42 Dose: 100 mls/hr Lidocaine HCl (Xylocaine 2% Jelly) 10 ml MUCMEM ONETIME ONE Stop: 01/02/19 23:12 Last Admin: 01/02/19 23:29 Dose: 10 ml - Exam General: Alert, Oriented Neck: Supple Lungs: Clear to Auscultation, Normal Respiratory Effort Cardiovascular: Regular Rate, Regular Rhythm GI/Abdominal Exam: Normal Bowel Sounds, Soft, Non-Tender, No Organomegaly (Female) Exam: Other (Patient has maculopapular skin rash present on the perineal area. Significant improvement compared to yesterday) Skin: Warm, Dry, Intact Psy/Mental Status: Alert, Normal Affect, Normal Mood - Problem List & Annotations (1) CKD (chronic kidney disease) SNOMED Code(s): 705810513 Code(s): N18.9 - CHRONIC KIDNEY DISEASE, UNSPECIFIED Status: Acute Current Visit: Yes (2) Cellulitis SNOMED Code(s): 092113410 Code(s): L03.90 - CELLULITIS, UNSPECIFIED Status: Acute Current Visit: Yes (3) Hyperlipemia SNOMED Code(s): 45338536 Code(s): E78.5 - HYPERLIPIDEMIA, UNSPECIFIED Status: Acute Current Visit : Yes (4) Hypertension SNOMED Code(s): 73901772 Code(s): I10 - ESSENTIAL (PRIMARY) HYPERTENSION Status: Acute Current Visit: Yes (5) MRSA (methicillin resistant Staphylococcus aureus) SNOMED Code(s): 930468036 Code(s): A49.02 - METHICILLIN RESIS STAPH INFECTION, UNSP SITE Status: Acute Current Visit: Yes (6) SIRS (systemic inflammatory response syndrome) SNOMED Code(s): 191067071 Code(s): R65.10 - SIRS OF NON-INFECTIOUS ORIGIN W/O ACUTE ORGAN DYSFUNCTION Status: Acute Current Visit: Yes (7) Venous insufficiency SNOMED Code(s): 35860617 Code(s): I87.2 - VENOUS INSUFFICIENCY (CHRONIC) (PERIPHERAL) Status: Acute Current Visit: Yes (8) Anterior epistaxis SNOMED Code(s): 480598954 Code(s): R04.0 - EPISTAXIS Status: Acute Current Visit: No (9) Anticoagulated on Coumadin SNOMED Code(s): 60743193 Code(s): Z51.81 - ENCOUNTER FOR THERAPEUTIC DRUG LEVEL MONITORING; Z79.01 - [facility] (CURRENT) USE OF ANTICOAGULANTS Status: Acute Priority: Medium Current Visit: No (10) Status post CVA SNOMED Code(s): 551200161 Code(s): Z86.73 - PRSNL HX OF TIA (TIA), AND CEREB INFRC W/O RESID DEFICITS Status: Acute Priority: Medium Current Visit: No (11) Amputated toe SNOMED Code(s): 498548192 Code(s): Z89.429 - ACQUIRED ABSENCE OF OTHER TOE(S), UNSPECIFIED SIDE Status: Chronic Current Visit: No - Problem List Review Problem List Initiated/Reviewed/Updated: Yes - My Orders Last 24 Hours: My Active Orders 01/02/19 23:37 Bedrest Bedside Commode [RC] ASDIRECTED Height and Weight [RC] DAILY OT Evaluation and Treatment [CONS] Routine PT Evaluation and Treatment [CONS] Routine Acetaminophen [Tylenol] 650 mg PO Q4H PRN Docusate Sodium/Sennosides [Senna Plus] 1 tab PO BID PRN Ondansetron [Zofran] 4 mg IV Q4H PRN Resuscitation Status Routine 01/02/19 23:38 Patient Status [ADT] Routine Oxygen Therapy [RC] PRN VTE/DVT Education [RC] Per Unit Routine Vital Signs [RC] Q4H 01/02/19 23:39 Intake and Output [RC] QSHIFT 01/02/19 23:40 Pulse Oximetry [RC] PRN 01/02/19 23:45 Pantoprazole [ProTONIX IV] 40 mg IV Q24H Sodium Chloride 0.9% [Normal Saline] 1,000 ml IV ASDIRECTED 01/02/19 23:49 Communication Order [RC] ROUTINE 01/02/19 23:51 Accu Check [Blood Glucose Check, Bedside] [RC] WITHMEALSANDBED 01/02/19 23:54 Communication Order [RC] ROUTINE 01/03/19 00:07 Dietary Supplements [RC] BIDMEALS 01/03/19 07:00 Insulin Lispro [HumaLOG] See Protocol SUBCUT QIDACANDBED 01/03/19 12:00 Piperacillin/Tazobactam/Dext [Zosyn in Dextrose Iso-Osmotic] 2.25 gm Premix Bag 1 bag IV Q6H 01/03/19 22:00 Vancomycin 1.8 gm Sodium Chloride 0.9% [Normal Saline] 250 ml IV Q24H 01/03/19 Breakfast 2 Gram Sodium Diet [DIET] Consistent Carbohydrate Diet [DIET] - Assessment Assessment:: 73-year-old female admitted into the hospital with a diagnosis of cellulitis. No overnight issues. WBC count is slightly elevated We will continue vancomycin and Zosyn Hemoglobin dropped 2 points. We will repeat CBC in the evening We will follow blood culture reports and change the antibiotics accordingly Continue home dose Coumadin for peripheral vascular disease Sliding scale insulin for diabetes CBC,'s BMP, INR tomorrow DVT prophylaxis Coumadin GI prophylaxis pantoprazole 40 mg daily DNR/DNI Soto catheter is not indicated Consistent carbohydrate, low-sodium diet Inpatient status
[2019-01-03] MEDS: Insulin Lispro 100 Unit/ML 3 ML KwikPen SUBCUT SCH ×4 (09:12→21:28)
[2019-01-03] MEDS: Cholecalciferol (Vitamin D3) 25 MCG Tab PO SCH (11:06)
[2019-01-03] MEDS: Escitalopram 10 MG Tab PO SCH (11:06)
[2019-01-03] MEDS: Furosemide 40 MG Tab PO SCH (11:06)
[2019-01-03] MEDS: Carvedilol 3.125 MG Tab PO SCH ×2 (11:06→20:18)
[2019-01-03] MEDS: Losartan 25 MG Tab PO SCH (11:07)
[2019-01-03] MEDS: amLODIPine 10 MG Tab PO SCH (11:07)
[2019-01-03] MEDS: Piperacillin/Tazobactam/Dext 2.25 GM in Premix Bag 1 BAG IV SCH ×3 (12:13→23:37)
[2019-01-03] MEDS: Simvastatin 20 MG Tab PO SCH (20:18)
[2019-01-03] MEDS: Pantoprazole 40 MG Tab.CR PO SCH (20:18)
[2019-01-03] MEDS: Vancomycin 1.65 GM in Sodium Chloride 0.9% 250 ML IV SCH (21:28)
[2019-01-03] MEDS ORDERED: Vancomycin 1.8 GM in Sodium Chloride 0.9% 250 ML IV SCH (22:00)
[2019-01-04] MEDS: Piperacillin/Tazobactam/Dext 2.25 GM in Premix Bag 1 BAG IV SCH ×3 (05:42→18:23)
[2019-01-04] MEDS: Insulin Lispro 100 Unit/ML 3 ML KwikPen SUBCUT SCH ×4 (08:00→22:06)
[2019-01-04] MEDS: Cholecalciferol (Vitamin D3) 25 MCG Tab PO SCH (09:06)
[2019-01-04] MEDS: Carvedilol 3.125 MG Tab PO SCH ×2 (09:06→21:48)
[2019-01-04] MEDS: Escitalopram 10 MG Tab PO SCH (09:06)
[2019-01-04] MEDS: amLODIPine 10 MG Tab PO SCH (09:06)
[2019-01-04] MEDS: Furosemide 40 MG Tab PO SCH (09:07)
[2019-01-04] MEDS: Losartan 25 MG Tab PO SCH (09:07)
[2019-01-04] MEDS ORDERED: Ondansetron 4 MG Tab.DIS PO PRN (09:19)
--- NOTE | 2019-01-04 09:48 | PCM.PN ---
- General Info Date of Service: 01/04/19 Admission Dx/Problem (Free Text): Admission Diagnosis/Problem Admission Diagnosis/Problem Cellulitis Subjective Update: No overnight issues. Patient slept very well. No fevers during overnight stay. No further episodes of vomiting. Patient denies any chest pain, exertional chest pain, breathing difficulty. No concerns from the nursing staff. Patient is on IV Abx. Other review of systems are not significant. - Patient Data Vitals - Most Recent: Last Vital Signs Temp 37.2 C 01/04/19 07:41 Pulse 57 L 01/04/19 09:06 Resp 16 01/04/19 07:41 BP 153/49 H 01/04/19 09:07 Pulse Ox 94 L 01/04/19 07:41 Weight - Most Recent: 124.738 kg I&O - Last 24 Hours: Intake & Output 01/03/19 01/04/19 01/04/19 22:59 06:59 14:59 Intake Total 2500 682 400 Output Total 250 Balance 2250 682 400 Lab Results Last 24 Hours: Laboratory Results - last 24 hr 01/03/19 01/03/19 01/03/19 Range/Units 04:00 16:15 21:48 WBC 11.8 H (4.5-11.0) K/uL RBC 4.17 (3.30-5.50) M/uL Hgb 12.1 (12.0-15.0) g/dL Hct 38.0 (36.0-48.0) % MCV 91 (80-98) fL MCH 29 (27-31) pg MCHC 32 (32-36) % Plt Count 225 (150-400) K/uL Neut % (Auto) (36-66) % Lymph % (Auto) (24-44) % [place] % (Auto) (2-6) % Eos % (Auto) (2-4) % Baso % (Auto) (0-1) % PT 22.2 H (9.5-12.0) sec INR 2.15 H (0.80-1.20) Sodium (140-148) mmol/L Potassium (3.6-5.2) mmol/L Chloride (100-108) mmol/L Carbon Dioxide (21-32) mmol/L Anion Gap (5.0-14.0) mmol/L BUN (7-18) mg/dL Creatinine (0.6-1.0) mg/dL Est Cr Clr Drug Dosing mL/min Estimated GFR (MDRD) (>60) Glucose (74-106) mg/dL Calcium (8.5-10.1) mg/dL Urine Color Yellow (YELLOW) Urine Appearance Cloudy A (CLEAR) Urine pH 5.0 (5.0-8.0) Ur Specific [place] 1.020 (1.008-1.030) Urine Protein Negative (NEGATIVE) mg/dL Urine Glucose (UA) Negative (NEGATIVE) mg/dL Urine Ketones Negative (NEGATIVE) mg/dL Urine Occult Blood Moderate H (NEGATIVE) Urine Nitrite Negative (NEGATIVE) Urine Bilirubin Negative (NEGATIVE) Urine Urobilinogen Normal (0.2-1.0) EU/dL Ur Leukocyte Esterase Trace H (NEGATIVE) Urine RBC Semi-packed H (0-5) Urine WBC 5-10 H (0-5) Ur Epithelial Cells Few Amorphous Sediment Few Urine Bacteria Rare Urine Mucus Few 01/04/19 01/04/19 01/04/19 Range/Units 04:48 09:29 09:29 WBC 13.5 H (4.5-11.0) K/uL RBC 4.00 (3.30-5.50) M/uL Hgb 11.9 L (12.0-15.0) g/dL Hct 36.5 (36.0-48.0) % MCV 91 (80-98) fL MCH 30 (27-31) pg MCHC 33 (32-36) % Plt Count 210 (150-400) K/uL Neut % (Auto) 86 H (36-66) % Lymph % (Auto) 7 L (24-44) % [place] % (Auto) 6 (2-6) % Eos % (Auto) 0 L (2-4) % Baso % (Auto) 0 (0-1) % PT 25.5 H (9.5-12.0) sec INR 2.49 H (0.80-1.20) Sodium 138 L (140-148) mmol/L Potassium 4.0 (3.6-5.2) mmol/L Chloride 104 (100-108) mmol/L Carbon Dioxide 26 (21-32) mmol/L Anion Gap 12.0 (5.0-14.0) mmol/L BUN 27 H (7-18) mg/dL Creatinine 1.8 H (0.6-1.0) mg/dL Est Cr Clr Drug Dosing 27.40 mL/min Estimated GFR (MDRD) 28 L (>60) Glucose 183 H (74-106) mg/dL Calcium 8.3 L (8.5-10.1) mg/dL Urine Color (YELLOW) Urine Appearance (CLEAR) Urine pH (5.0-8.0) Ur Specific [place] (1.008-1.030) Urine Protein (NEGATIVE) mg/dL Urine Glucose (UA) (NEGATIVE) mg/dL Urine Ketones (NEGATIVE) mg/dL Urine Occult Blood (NEGATIVE) Urine Nitrite (NEGATIVE) Urine Bilirubin (NEGATIVE) Urine Urobilinogen (0.2-1.0) EU/dL Ur Leukocyte Esterase (NEGATIVE) Urine RBC (0-5) Urine WBC (0-5) Ur Epithelial Cells Amorphous Sediment Urine Bacteria Urine Mucus Steve Results Last 24 Hours: Microbiology 01/03/19 00:01 Urine Culture - Preliminary Urine, Clean Catch NO GROWTH AFTER 1 DAY 01/02/19 22:40 Aerobic Blood Culture - Preliminary Blood - Arm, Left NO GROWTH AFTER 1 DAY Anaerobic Blood Culture - Preliminary NO GROWTH AFTER 1 DAY 01/02/19 22:35 Aerobic Blood Culture - Preliminary Blood - Arm, Left NO GROWTH AFTER 1 DAY Anaerobic Blood Culture - Preliminary NO GROWTH AFTER 1 DAY Med Orders - Current: Current Medications Acetaminophen (Tylenol) 650 mg PO Q4H PRN PRN Reason: Pain (Mild 1-3)/fever Last Admin: 01/03/19 01:53 Dose: 650 mg Amlodipine Besylate (Norvasc) 10 mg PO DAILY [facility] Last Admin: 01/04/19 09:06 Dose: 10 mg Carvedilol (Coreg) 3.125 mg PO BID [facility] Last Admin: 01/04/19 09:06 Dose: 3.125 mg Cholecalciferol (Vitamin D3) 50 mcg PO DAILY [facility] Last Admin: 01/04/19 09:06 Dose: 50 mcg Escitalopram Oxalate (Lexapro) 10 mg PO DAILY [facility] Last Admin: 01/04/19 09:06 Dose: 10 mg Furosemide (Lasix) 40 mg PO DAILY [facility] Last Admin: 01/04/19 09:07 Dose: 40 mg Piperacillin/Tazobactam/ (Dextrose 2.25 gm/ Premix) 50 mls @ 100 mls/hr IV Q6H [facility] Last Admin: 01/04/19 05:42 Dose: 100 mls/hr Vancomycin HCl 1.65 gm/ Sodium (Chloride) 250 mls @ 150 mls/hr IV Q24H [facility] Last Admin: 01/03/19 21:28 Dose: 150 mls/hr Insulin Human Lispro (Humalog) 0 unit SUBCUT QIDACANDBED [facility]; Protocol Last Admin: 01/04/19 08:00 Dose: Not Given Lactobacillus Rhamnosus (Culturelle) 1 cap PO BID [facility] Losartan Potassium (Cozaar) 75 mg PO DAILY [facility] Last Admin: 01/04/19 09:07 Dose: 75 mg Ondansetron HCl (Zofran Odt) 4 mg PO Q6H PRN PRN Reason: Nausea/Vomiting Pantoprazole Sodium (Protonix) 40 mg PO BEDTIME [facility] Last Admin: 01/03/19 20:18 Dose: 40 mg Senna/Docusate Sodium (Senna Plus) 1 tab PO BID PRN PRN Reason: Constipation Simvastatin (Zocor) 10 mg PO BEDTIME [facility] Last Admin: 01/03/19 20:18 Dose: 10 mg Warfarin Sodium (Coumadin) 4 mg PO MoWeFr@1300 [facility] Last Admin: 01/03/19 12:13 Dose: 4 mg Warfarin Sodium 5 mg/ Warfarin (Sodium 1 mg) 6 mg PO SuTuThSa@1300 [facility] Discontinued Medications Sodium Chloride (Normal Saline) 1,000 mls @ 500 mls/hr IV ASDIRECTED [facility] Last Admin: 01/02/19 22:45 Dose: 500 mls/hr Sodium Chloride (Normal Saline) 1,000 mls @ 150 mls/hr IV ASDIRECTED [facility] Last Admin: 01/03/19 12:14 Dose: 150 mls/hr Vancomycin HCl 1.5 gm/ Sodium (Chloride) 250 mls @ 150 mls/hr IV Q12H [facility] Last Admin: 01/03/19 02:07 Dose: 150 mls/hr Piperacillin Sod/Tazobactam (Sod 3.375 gm/ Sodium Chloride) 50 mls @ 100 mls/ hr IV Q6H [facility] Last Admin: 01/03/19 05:42 Dose: 100 mls/hr Lidocaine HCl (Xylocaine 2% Jelly) 10 ml MUCMEM ONETIME ONE Stop: 01/02/19 23:12 Last Admin: 01/02/19 23:29 Dose: 10 ml Ondansetron HCl (Zofran) 4 mg IV Q4H PRN PRN Reason: Nausea/Vomiting Pantoprazole Sodium (Protonix Iv) 40 mg IV Q24H [facility] Last Admin: 01/03/19 01:42 Dose: 40 mg - Exam General: Alert, Oriented Neck: Supple Lungs: Clear to Auscultation, Normal Respiratory Effort Cardiovascular: Regular Rate, Regular Rhythm GI/Abdominal Exam: Normal Bowel Sounds, Soft, Non-Tender, No Organomegaly Extremities: Normal Inspection, Normal Range of Motion Skin: Warm, Dry, Intact Psy/Mental Status: Alert, Normal Affect, Normal Mood - Problem List & Annotations (1) Cellulitis SNOMED Code(s): 324952169 Code(s): L03.90 - CELLULITIS, UNSPECIFIED Status: Acute Current Visit: Yes (2) SIRS (systemic inflammatory response syndrome) SNOMED Code(s): 369539339 Code(s): R65.10 - SIRS OF NON-INFECTIOUS ORIGIN W/O ACUTE ORGAN DYSFUNCTION Status: Acute Current Visit: Yes (3) Hypertension SNOMED Code(s): 31385215 Code(s): I10 - ESSENTIAL (PRIMARY) HYPERTENSION Status: Acute Current Visit: Yes (4) Hyperlipemia SNOMED Code(s): 34150444 Code(s): E78.5 - HYPERLIPIDEMIA, UNSPECIFIED Status: Acute Current Visit : Yes (5) MRSA (methicillin resistant Staphylococcus aureus) SNOMED Code(s): 032850340 Code(s): A49.02 - METHICILLIN RESIS STAPH INFECTION, UNSP SITE Status: Acute Current Visit: Yes (6) CKD (chronic kidney disease) SNOMED Code(s): 318174155 Code(s): N18.9 - CHRONIC KIDNEY DISEASE, UNSPECIFIED Status: Acute Current Visit: Yes (7) Venous insufficiency SNOMED Code(s): 09936474 Code(s): I87.2 - VENOUS INSUFFICIENCY (CHRONIC) (PERIPHERAL) Status: Acute Current Visit: Yes (8) Anticoagulated on Coumadin SNOMED Code(s): 54436835 Code(s): Z51.81 - ENCOUNTER FOR THERAPEUTIC DRUG LEVEL MONITORING; Z79.01 - [facility] (CURRENT) USE OF ANTICOAGULANTS Status: Acute Priority: Medium Current Visit: No (9) Status post CVA SNOMED Code(s): 419459174 Code(s): Z86.73 - PRSNL HX OF TIA (TIA), AND CEREB INFRC W/O RESID DEFICITS Status: Acute Priority: Medium Current Visit: No (10) Amputated toe SNOMED Code(s): 134977612 Code(s): Z89.429 - ACQUIRED ABSENCE OF OTHER TOE(S), UNSPECIFIED SIDE Status: Chronic Current Visit: No (11) Ingrowing toenail SNOMED Code(s): 483778647 Code(s): L60.0 - INGROWING NAIL Status: Acute Current Visit: Yes (12) Ingrowing toenail of right foot SNOMED Code(s): 46608993561408199 Code(s): L60.0 - INGROWING NAIL Status: Acute Current Visit: Yes (13) Blood in the urine SNOMED Code(s): 61963738 Code(s): R31.9 - HEMATURIA, UNSPECIFIED Status: Acute Current Visit: Yes - Problem List Review Problem List Initiated/Reviewed/Updated: Yes - My Orders Last 24 Hours: My Active Orders 01/03/19 10:15 Carvedilol [Coreg] 3.125 mg PO BID Cholecalciferol (Vitamin D3) [Vitamin D3] 50 mcg PO DAILY Escitalopram [Lexapro] 10 mg PO DAILY Furosemide [Lasix] 40 mg PO DAILY Losartan [Cozaar] 75 mg PO DAILY amLODIPine [Norvasc] 10 mg PO DAILY 01/03/19 12:00 Piperacillin/Tazobactam/Dext [Zosyn in Dextrose Iso-Osmotic] 2.25 gm Premix Bag 1 bag IV Q6H 01/03/19 13:00 Warfarin [Coumadin] 4 mg PO MoWeFr@1300 01/03/19 16:37 Convert IV to Peripheral Lock [Convert IV to Saline Lock] [OM.PC] Routine 01/03/19 21:00 Pantoprazole [ProTONIX] 40 mg PO BEDTIME Simvastatin [Zocor] 10 mg PO BEDTIME 01/03/19 21:42 UA W/MICROSCOPIC [URIN] Routine 01/03/19 22:00 Vancomycin 1.65 gm Sodium Chloride 0.9% [Normal Saline] 250 ml IV Q24H 01/04/19 09:19 Ondansetron [Zofran ODT] 4 mg PO Q6H PRN 01/04/19 09:30 Lactobacillus Rhamnosus GG [Culturelle] 1 cap PO BID 01/04/19 11:30 GLUCOSE POC LAB TO COLLECT [POC] QIDACANDBED 01/04/19 13:00 Warfarin [Coumadin] 6 mg PO SuTuThSa@1300 01/04/19 16:30 GLUCOSE POC LAB TO COLLECT [POC] QIDACANDBED 01/04/19 21:00 GLUCOSE POC LAB TO COLLECT [POC] QIDACANDBED 01/05/19 05:11 BASIC METABOLIC PANEL,BMP [CHEM] AM CBC WITH AUTO DIFF [HEME] AM 01/05/19 07:30 GLUCOSE POC LAB TO COLLECT [POC] QIDACANDBED 01/05/19 11:30 GLUCOSE POC LAB TO COLLECT [POC] QIDACANDBED 01/05/19 16:30 GLUCOSE POC LAB TO COLLECT [POC] QIDACANDBED 01/05/19 21:00 GLUCOSE POC LAB TO COLLECT [POC] QIDACANDBED 01/06/19 07:30 GLUCOSE POC LAB TO COLLECT [POC] QIDACANDBED 01/06/19 11:30 GLUCOSE POC LAB TO COLLECT [POC] QIDACANDBED 01/06/19 16:30 GLUCOSE POC LAB TO COLLECT [POC] QIDACANDBED 01/06/19 21:00 GLUCOSE POC LAB TO COLLECT [POC] QIDACANDBED 01/07/19 07:30 GLUCOSE POC LAB TO COLLECT [POC] QIDACANDBED 01/07/19 11:30 GLUCOSE POC LAB TO COLLECT [POC] QIDACANDBED 01/07/19 16:30 GLUCOSE POC LAB TO COLLECT [POC] QIDACANDBED 01/07/19 21:00 GLUCOSE POC LAB TO COLLECT [POC] QIDACANDBED - Assessment Assessment:: 73-year-old female admitted into the hospital with a diagnosis of cellulitis. No overnight issues. WBC count is slightly elevated We will continue vancomycin and Zosyn. We will repeat CBC in the evening We will follow blood culture reports and change the antibiotics accordingly Patient repeat UA showed blood in the urine along with positive leukocyte esterase we will do CT abdomen pelvis without contrast will follow the results and change the management accordingly. Daily dressings for ingrown toenail Continue home dose Coumadin for peripheral vascular disease Sliding scale insulin for diabetes CBC BMP, INR tomorrow DVT prophylaxis Coumadin GI prophylaxis pantoprazole 40 mg daily DNR/DNI Soto catheter is not indicated Consistent carbohydrate, low-sodium diet Inpatient status - Plan Plan:: 73-year-old female with past medical history of CVA, hypertension, hyperlipidemia, peripheral vascular disease, CKD, diabetes, previous MRSA infection came to the ED with a concerns of confusion along with fever and admitted in the hospital with a diagnosis of cellulitis as inpatient status. Patient WBC count is elevated 16.0, lactic acid is 1.5 Patient has significant erythematic rash present on the perineal area Patient urine did not show any infection INR within normal limits Seems like cellulitis We will place her on Zosyn and vancomycin IV fluids maintenance 150 mL/h Hemoglobin is at baseline Blood pressures are reassuring We will continue home medications We will hold metformin, aspirin medication Sliding scale insulin for diabetes CBC CMP tomorrow DVT prophylaxis Coumadin IV fluids 150 mL/h normal saline Diet consistent carbohydrate diet, low-sodium diet Soto catheter not indicated GI prophylaxis pantoprazole 40 mg once daily DNR/DNI CODE STATUS Inpatient status Note: Portions of this document may have been created with a voice recognition software. I have reviewed and edited these portions carefully but occasionally errors in auto rebuilder do occur and are missed with the editing.
[2019-01-04] MEDS: Lactobacillus Rhamnosus GG (Probiotic) Cap PO SCH ×2 (11:28→21:47)
--- NOTE | 2019-01-04 11:49 | CRLCT ---
Blood in urine. TECHNIQUE: Noncontrast CT abdomen pelvis coronal sagittal reformat images obtained. COMPARISON: No comparison studies are available. Findings: The heart size is normal. Heart size is normal. Bronchial wall thickening patchy left basilar opacities. Unenhanced liver pancreas adrenal glands spleen appears unremarkable. Stones and/or sludge in the gallbladder. Atherosclerotic calcification of the aorta nonaneurysmal. Kidneys appear unremarkable. No hydronephrosis. No renal calculi. The urinary bladder is unremarkable. Diverticulosis normal appendix. Densely calcified masses in the pelvis likely related to calcified fibroids. No suspicious bony lesions. Impression: 1. No acute findings in the abdomen or pelvis. Kidneys are unremarkable without hydronephrosis or renal calculi. 2.Stones or sludge in the gallbladder. 3. Diverticulosis. Please note that all CT scans at this facility use dose modulation, iterative reconstruction, and/or weight-based dosing when appropriate to reduce radiation dose to as low as reasonably achievable. Dictated by Dina Jacobs MD @ Jan 04 2019 11:42AM Signed by Dr. Dina Jacobs @ Jan 04 2019 11:48AM
[2019-01-04] MEDS ORDERED: Levofloxacin/Dextrose 5%-Water 750 MG in Premix Bag 1 BAG IV SCH (21:00)
[2019-01-04] MEDS: Vancomycin 1.65 GM in Sodium Chloride 0.9% 250 ML IV SCH (21:46)
[2019-01-04] MEDS: Simvastatin 20 MG Tab PO SCH (21:48)
[2019-01-04] MEDS: Pantoprazole 40 MG Tab.CR PO SCH (21:49)
[2019-01-05] MEDS: Piperacillin/Tazobactam/Dext 2.25 GM in Premix Bag 1 BAG IV SCH ×2 (02:19→05:52)
[2019-01-05] MEDS: Insulin Lispro 100 Unit/ML 3 ML KwikPen SUBCUT SCH ×4 (08:00→22:19)
--- NOTE | 2019-01-05 09:27 | PCM.PN ---
- General Info Date of Service: 01/05/19 Admission Dx/Problem (Free Text): Admission Diagnosis/Problem Admission Diagnosis/Problem Cellulitis and pneumonia Subjective Update: No overnight issues. Patient slept very well. No fevers during overnight stay. No further episodes of vomiting. patient has sob while walking. Patient denies any chest pain, exertional chest pain, breathing difficulty. No concerns from the nursing staff. Patient is on IV Abx. Other review of systems are not significant. - Patient Data Vitals - Most Recent: Last Vital Signs Temp 36.5 C 01/05/19 02:18 Pulse 60 01/05/19 02:18 Resp 20 01/05/19 02:18 BP 156/72 H 01/04/19 21:48 Pulse Ox 90 L 01/05/19 02:18 Weight - Most Recent: 124.738 kg I&O - Last 24 Hours: Intake & Output 01/04/19 01/05/19 01/05/19 22:59 06:59 14:59 Intake Total 50 600 Output Total 300 200 Balance -250 400 Lab Results Last 24 Hours: Laboratory Results - last 24 hr 01/04/19 01/04/19 01/04/19 Range/Units 09:29 09:29 18:14 WBC 13.5 H 13.3 H (4.5-11.0) K/uL RBC 4.00 4.38 (3.30-5.50) M/uL Hgb 11.9 L 12.7 (12.0-15.0) g/dL Hct 36.5 39.9 (36.0-48.0) % MCV 91 91 (80-98) fL MCH 30 29 (27-31) pg MCHC 33 32 (32-36) % Plt Count 210 262 (150-400) K/uL Neut % (Auto) 86 H (36-66) % Lymph % (Auto) 7 L (24-44) % Alcorn % (Auto) 6 (2-6) % Eos % (Auto) 0 L (2-4) % Baso % (Auto) 0 (0-1) % Sodium 138 L (140-148) mmol/L Potassium 4.0 (3.6-5.2) mmol/L Chloride 104 (100-108) mmol/L Carbon Dioxide 26 (21-32) mmol/L Anion Gap 12.0 (5.0-14.0) mmol/L BUN 27 H (7-18) mg/dL Creatinine 1.8 H (0.6-1.0) mg/dL Est Cr Clr Drug Dosing 27.40 mL/min Estimated GFR (MDRD) 28 L (>60) Glucose 183 H (74-106) mg/dL Calcium 8.3 L (8.5-10.1) mg/dL 01/05/19 01/05/19 Range/Units 04:45 04:45 WBC 9.6 (4.5-11.0) K/uL RBC 3.89 (3.30-5.50) M/uL Hgb 11.4 L (12.0-15.0) g/dL Hct 35.0 L (36.0-48.0) % MCV 90 (80-98) fL MCH 29 (27-31) pg MCHC 33 (32-36) % Plt Count 215 (150-400) K/uL Neut % (Auto) 74 H (36-66) % Lymph % (Auto) 16 L (24-44) % Alcorn % (Auto) 9 H (2-6) % Eos % (Auto) 0 L (2-4) % Baso % (Auto) 0 (0-1) % Sodium 142 (140-148) mmol/L Potassium 3.8 (3.6-5.2) mmol/L Chloride 106 (100-108) mmol/L Carbon Dioxide 25 (21-32) mmol/L Anion Gap 11.4 (5.0-14.0) mmol/L BUN 25 H (7-18) mg/dL Creatinine 1.8 H (0.6-1.0) mg/dL Est Cr Clr Drug Dosing 27.40 mL/min Estimated GFR (MDRD) 28 L (>60) Glucose 112 H (74-106) mg/dL Calcium 8.4 L (8.5-10.1) mg/dL Steve Results Last 24 Hours: Microbiology 01/03/19 00:01 Urine Culture - Final Urine, Clean Catch NO GROWTH AFTER 2 DAYS 01/02/19 22:35 Aerobic Blood Culture - Preliminary Blood - Arm, Left NO GROWTH AFTER 2 DAYS Anaerobic Blood Culture - Preliminary NO GROWTH AFTER 2 DAYS 01/02/19 22:40 Aerobic Blood Culture - Preliminary Blood - Arm, Left NO GROWTH AFTER 2 DAYS Anaerobic Blood Culture - Preliminary NO GROWTH AFTER 2 DAYS Med Orders - Current: Current Medications Acetaminophen (Tylenol) 650 mg PO Q4H PRN PRN Reason: Pain (Mild 1-3)/fever Last Admin: 01/03/19 01:53 Dose: 650 mg Amlodipine Besylate (Norvasc) 10 mg PO DAILY [facility] Last Admin: 01/04/19 09:06 Dose: 10 mg Carvedilol (Coreg) 3.125 mg PO BID [facility] Last Admin: 01/04/19 21:48 Dose: 3.125 mg Cholecalciferol (Vitamin D3) 50 mcg PO DAILY [facility] Last Admin: 01/04/19 09:06 Dose: 50 mcg Escitalopram Oxalate (Lexapro) 10 mg PO DAILY [facility] Last Admin: 01/04/19 09:06 Dose: 10 mg Furosemide (Lasix) 40 mg PO DAILY [facility] Last Admin: 01/04/19 09:07 Dose: 40 mg Levofloxacin/Dextrose 750 mg/ (Premix) 150 mls @ 150 mls/hr IV Q48H [facility] Last Admin: 01/04/19 23:18 Dose: 150 mls/hr Insulin Human Lispro (Humalog) 0 unit SUBCUT QIDACANDBED [facility]; Protocol Last Admin: 01/05/19 08:00 Dose: Not Given Lactobacillus Rhamnosus (Culturelle) 1 cap PO BID [facility] Last Admin: 01/04/19 21:47 Dose: 1 cap Losartan Potassium (Cozaar) 75 mg PO DAILY [facility] Last Admin: 01/04/19 09:07 Dose: 75 mg Ondansetron HCl (Zofran Odt) 4 mg PO Q6H PRN PRN Reason: Nausea/Vomiting Pantoprazole Sodium (Protonix) 40 mg PO BEDTIME [facility] Last Admin: 01/04/19 21:49 Dose: 40 mg Senna/Docusate Sodium (Senna Plus) 1 tab PO BID PRN PRN Reason: Constipation Simvastatin (Zocor) 10 mg PO BEDTIME [facility] Last Admin: 01/04/19 21:48 Dose: 10 mg Warfarin Sodium (Coumadin) 4 mg PO MoWeFr@1300 [facility] Last Admin: 01/03/19 12:13 Dose: 4 mg Warfarin Sodium 5 mg/ Warfarin (Sodium 1 mg) 6 mg PO SuTuThSa@1300 [facility] Last Admin: 01/04/19 13:21 Dose: 6 mg Discontinued Medications Sodium Chloride (Normal Saline) 1,000 mls @ 500 mls/hr IV ASDIRECTED [facility] Last Admin: 01/02/19 22:45 Dose: 500 mls/hr Sodium Chloride (Normal Saline) 1,000 mls @ 150 mls/hr IV ASDIRECTED [facility] Last Admin: 01/03/19 12:14 Dose: 150 mls/hr Vancomycin HCl 1.5 gm/ Sodium (Chloride) 250 mls @ 150 mls/hr IV Q12H [facility] Last Admin: 01/03/19 02:07 Dose: 150 mls/hr Piperacillin Sod/Tazobactam (Sod 3.375 gm/ Sodium Chloride) 50 mls @ 100 mls/ hr IV Q6H [facility] Last Admin: 01/03/19 05:42 Dose: 100 mls/hr Piperacillin/Tazobactam/ (Dextrose 2.25 gm/ Premix) 50 mls @ 100 mls/hr IV Q6H [facility] Last Admin: 01/05/19 05:52 Dose: 100 mls/hr Vancomycin HCl 1.65 gm/ Sodium (Chloride) 250 mls @ 150 mls/hr IV Q24H [facility] Last Admin: 01/04/19 21:46 Dose: 150 mls/hr Lidocaine HCl (Xylocaine 2% Jelly) 10 ml MUCMEM ONETIME ONE Stop: 01/02/19 23:12 Last Admin: 01/02/19 23:29 Dose: 10 ml Ondansetron HCl (Zofran) 4 mg IV Q4H PRN PRN Reason: Nausea/Vomiting Pantoprazole Sodium (Protonix Iv) 40 mg IV Q24H [facility] Last Admin: 01/03/19 01:42 Dose: 40 mg - Exam General: Alert, Oriented Neck: Supple Lungs: Clear to Auscultation, Normal Respiratory Effort Cardiovascular: Regular Rate, Regular Rhythm GI/Abdominal Exam: Normal Bowel Sounds, Soft, Non-Tender, No Organomegaly Skin: Warm, Dry, Intact Wound/Incisions: Healing Well Psy/Mental Status: Alert, Normal Affect, Normal Mood - Problem List & Annotations (1) Cellulitis SNOMED Code(s): 027946699 Code(s): L03.90 - CELLULITIS, UNSPECIFIED Status: Acute Current Visit: Yes (2) SIRS (systemic inflammatory response syndrome) SNOMED Code(s): 307551325 Code(s): R65.10 - SIRS OF NON-INFECTIOUS ORIGIN W/O ACUTE ORGAN DYSFUNCTION Status: Acute Current Visit: Yes (3) Hypertension SNOMED Code(s): 64134779 Code(s): I10 - ESSENTIAL (PRIMARY) HYPERTENSION Status: Acute Current Visit: Yes (4) Hyperlipemia SNOMED Code(s): 44161973 Code(s): E78.5 - HYPERLIPIDEMIA, UNSPECIFIED Status: Acute Current Visit : Yes (5) MRSA (methicillin resistant Staphylococcus aureus) SNOMED Code(s): 789117029 Code(s): A49.02 - METHICILLIN RESIS STAPH INFECTION, UNSP SITE Status: Acute Current Visit: Yes (6) CKD (chronic kidney disease) SNOMED Code(s): 806364547 Code(s): N18.9 - CHRONIC KIDNEY DISEASE, UNSPECIFIED Status: Acute Current Visit: Yes (7) Venous insufficiency SNOMED Code(s): 32397268 Code(s): I87.2 - VENOUS INSUFFICIENCY (CHRONIC) (PERIPHERAL) Status: Acute Current Visit: Yes (8) Anticoagulated on Coumadin SNOMED Code(s): 68373906 Code(s): Z51.81 - ENCOUNTER FOR THERAPEUTIC DRUG LEVEL MONITORING; Z79.01 - NURSING HOME (CURRENT) USE OF ANTICOAGULANTS Status: Acute Priority: Medium Current Visit: No (9) Status post CVA SNOMED Code(s): 997593608 Code(s): Z86.73 - PRSNL HX OF TIA (TIA), AND CEREB INFRC W/O RESID DEFICITS Status: Acute Priority: Medium Current Visit: No (10) Amputated toe SNOMED Code(s): 422503596 Code(s): Z89.429 - ACQUIRED ABSENCE OF OTHER TOE(S), UNSPECIFIED SIDE Status: Chronic Current Visit: No (11) Ingrowing toenail SNOMED Code(s): 796411889 Code(s): L60.0 - INGROWING NAIL Status: Acute Current Visit: Yes (12) Ingrowing toenail of right foot SNOMED Code(s): 92560231682974065 Code(s): L60.0 - INGROWING NAIL Status: Acute Current Visit: Yes (13) Blood in the urine SNOMED Code(s): 68143276 Code(s): R31.9 - HEMATURIA, UNSPECIFIED Status: Acute Current Visit: Yes - Problem List Review Problem List Initiated/Reviewed/Updated: Yes - My Orders Last 24 Hours: My Active Orders 01/04/19 09:19 Ondansetron [Zofran ODT] 4 mg PO Q6H PRN 01/04/19 09:30 Lactobacillus Rhamnosus GG [Culturelle] 1 cap PO BID 01/04/19 10:11 Communication Order [RC] DAILY 01/04/19 13:00 Warfarin [Coumadin] 6 mg PO SuTuThSa@1300 01/04/19 21:00 Levofloxacin/Dextrose 5%-Water [Levaquin in D5W 750 MG/150 ML] 750 mg Premix Bag 1 bag IV Q48H 01/05/19 08:31 Chest 1V Frontal [CR] Routine 01/05/19 11:30 GLUCOSE POC LAB TO COLLECT [POC] QIDACANDBED 01/05/19 16:30 GLUCOSE POC LAB TO COLLECT [POC] QIDACANDBED 01/05/19 21:00 GLUCOSE POC LAB TO COLLECT [POC] QIDACANDBED 01/06/19 07:30 GLUCOSE POC LAB TO COLLECT [POC] QIDACANDBED 01/06/19 11:30 GLUCOSE POC LAB TO COLLECT [POC] QIDACANDBED 01/06/19 16:30 GLUCOSE POC LAB TO COLLECT [POC] QIDACANDBED 01/06/19 21:00 GLUCOSE POC LAB TO COLLECT [POC] QIDACANDBED 01/07/19 07:30 GLUCOSE POC LAB TO COLLECT [POC] QIDACANDBED 01/07/19 11:30 GLUCOSE POC LAB TO COLLECT [POC] QIDACANDBED 01/07/19 16:30 GLUCOSE POC LAB TO COLLECT [POC] QIDACANDBED 01/07/19 21:00 GLUCOSE POC LAB TO COLLECT [POC] QIDACANDBED - Assessment Assessment:: 73-year-old female admitted into the hospital with a diagnosis of cellulitis and pneumonia. Patient has mild SOB while walking. No overnight issues. WBC count came to WNL CT abdomen pelvis without contrast results showed left lower lobe pneumonia Pt received 1 dose of Levofloxacin yesterday. We will discontinue vancomycin and Zosyn. will change IV levofloxacin to Oral We will follow blood culture reports and change the antibiotics accordingly Daily dressings for ingrown toenail Continue home dose Coumadin for peripheral vascular disease Sliding scale insulin for diabetes CBC BMP, INR tomorrow DVT prophylaxis Coumadin GI prophylaxis pantoprazole 40 mg daily DNR/DNI Soto catheter is not indicated Consistent carbohydrate, low-sodium diet Inpatient status - Plan Plan:: 73-year-old female with past medical history of CVA, hypertension, hyperlipidemia, peripheral vascular disease, CKD, diabetes, previous MRSA infection came to the ED with a concerns of confusion along with fever and admitted in the hospital with a diagnosis of cellulitis as inpatient status. Patient WBC count is elevated 16.0, lactic acid is 1.5 Patient has significant erythematic rash present on the perineal area Patient urine did not show any infection INR within normal limits Seems like cellulitis We will place her on Zosyn and vancomycin IV fluids maintenance 150 mL/h Hemoglobin is at baseline Blood pressures are reassuring We will continue home medications We will hold metformin, aspirin medication Sliding scale insulin for diabetes CBC CMP tomorrow DVT prophylaxis Coumadin IV fluids 150 mL/h normal saline Diet consistent carbohydrate diet, low-sodium diet Soto catheter not indicated GI prophylaxis pantoprazole 40 mg once daily DNR/DNI CODE STATUS Inpatient status Note: Portions of this document may have been created with a voice recognition software. I have reviewed and edited these portions carefully but occasionally errors in advanced seal delivery system do occur and are missed with the editing.
--- NOTE | 2019-01-05 09:30 | CRLCR ---
Indication: Fever. Abnormal CT. Technique: Single AP portable view of the chest was obtained. Comparison: Chest x-ray dated January 02, 2019. CT scan of the abdomen and pelvis dated January 04, 2019. Findings: The right hemidiaphragm is elevated. The heart is normal in size. Mild opacities are identified in the left lung base, not unchanged from the CT scan from yesterday. No pleural effusion or pneumothorax is identified. Impression: Stable opacities identified in the left lung base. Dictated by Hoda Guillen MD @ Jan 05 2019 9:27AM Signed by Dr. Hoda Guillen @ Jan 05 2019 9:28AM
[2019-01-05] MEDS: Furosemide 40 MG Tab PO SCH (10:17)
[2019-01-05] MEDS: Escitalopram 10 MG Tab PO SCH (10:17)
[2019-01-05] MEDS: Carvedilol 3.125 MG Tab PO SCH ×2 (10:21→20:36)
[2019-01-05] MEDS: Losartan 25 MG Tab PO SCH (10:21)
[2019-01-05] MEDS: Cholecalciferol (Vitamin D3) 25 MCG Tab PO SCH (10:22)
[2019-01-05] MEDS: Lactobacillus Rhamnosus GG (Probiotic) Cap PO SCH ×2 (10:22→20:35)
[2019-01-05] MEDS: amLODIPine 10 MG Tab PO SCH (10:22)
[2019-01-05] MEDS: Simvastatin 20 MG Tab PO SCH (20:36)
[2019-01-05] MEDS: Pantoprazole 40 MG Tab.CR PO SCH (20:36)
[2019-01-05] MEDS ORDERED: Albuterol 0.083% 2.5 MG/3 ML Neb Soln NEB PRN (21:42)
[2019-01-06] MEDS: Insulin Lispro 100 Unit/ML 3 ML KwikPen SUBCUT SCH ×2 (07:41→11:37)
--- NOTE | 2019-01-06 07:52 | PCM.DCSUM1 ---
Discharge Summary - Hospital Course Free Text/Narrative:: 73-year-old female with past medical history of peripheral vascular disease, on Coumadin medication, diabetes on metformin medication, hypertension, hyperlipidemia, CKD, VS MRSA infection, venous insufficiency came to the ED with a concerns of one episode of vomiting associated with altered mental status. Patient is a skilled nursing resident. Patient has confusional state associated with temperature 101 with that concerns patient transferred to the ED. Patient had 2 episodes of vomiting. Patient lab results showed WBC count is elevated along with a left shift. With lactic acid levels are 1.5. Patient is DNR/DNI. Patient received thousand mL of IV fluids in the ED. Patient was started on IV antibiotics vancomycin, Zosyn with a concerns of cellulitis at perineal area. Patient WBC count constantly elevated during initial hospital stay and patient became short of breath during exertion with saturations of low 90s. Patient has blood in the urine and CT abdomen without contrast did not show any acute abnormality. Patient is completely asymptomatic during hospital stay. Patient CT showed left lower lobe pneumonia and chest x-ray confirmed pneumonia. Patient was started on IV levofloxacin along with Zosyn and vancomycin. Patient WBC count came back to baseline with levofloxacin. IV antibiotics vancomycin Zosyn discontinued and place her on oral levofloxacin. During the discharge today patient potassium was at borderline received 40 mEq of potassium. Patient came back to baseline on the discharge day and discharged her in stable condition. (1) Cellulitis (14) Left lower lobe pneumonia (2) SIRS (systemic inflammatory response syndrome) Continue levofloxacin 3 more doses along with probiotic. Hypokalemia Received 1 dose of 40 mEq of potassium. Recommended to repeat BMP in 3 days during outpatient visit (4) Hyperlipemia (5) MRSA (methicillin resistant Staphylococcus aureus) (6) CKD (chronic kidney disease) (7) Venous insufficiency (8) Anticoagulated on Coumadin (9) Status post CVA (10) Amputated toe (11) Ingrowing toenail (12) Ingrowing toenail of right foot Continue home medications Brief History: 73-year-old female with past medical history of CVA, hypertension , hyperlipidemia, peripheral vascular disease on Coumadin, CKD, diabetes, previous history of MRSA, aortic stenosis admitted to the hospital and inpatient status with concerns of confusion. During the hospital stay patient diagnosed with cellulitis and pneumonia and successfully treated with antibiotics. Diagnosis: Stroke: No - Discharge Data Discharge Date: 01/06/19 Discharge Disposition: DC/Tfer to [facility] Condition: Stable - Discharge Diagnosis/Problem(s) (1) Cellulitis SNOMED Code(s): 940455736 ICD Code: L03.90 - CELLULITIS, UNSPECIFIED Status: Acute Priority: High Current Visit: Yes (2) SIRS (systemic inflammatory response syndrome) SNOMED Code(s): 026894077 ICD Code: R65.10 - SIRS OF NON-INFECTIOUS ORIGIN W/O ACUTE ORGAN DYSFUNCTION Status: Acute Priority: High Current Visit: Yes (3) Hypertension SNOMED Code(s): 94895540 ICD Code: I10 - ESSENTIAL (PRIMARY) HYPERTENSION Status: Acute Priority: Medium Current Visit: Yes (4) Hyperlipemia SNOMED Code(s): 27650652 ICD Code: E78.5 - HYPERLIPIDEMIA, UNSPECIFIED Status: Acute Priority: Medium Current Visit: Yes (5) MRSA (methicillin resistant Staphylococcus aureus) SNOMED Code(s): 761837445 ICD Code: A49.02 - METHICILLIN RESIS STAPH INFECTION, UNSP SITE Status: Chronic Priority: Medium Current Visit: Yes Onset Date: ~12/10/14 (6) CKD (chronic kidney disease) SNOMED Code(s): 295060597 ICD Code: N18.9 - CHRONIC KIDNEY DISEASE, UNSPECIFIED Status: Chronic Priority: Medium Current Visit: Yes (7) Venous insufficiency SNOMED Code(s): 98660835 ICD Code: I87.2 - VENOUS INSUFFICIENCY (CHRONIC) (PERIPHERAL) Status: Chronic Priority: Medium Current Visit: Yes (8) Anticoagulated on Coumadin SNOMED Code(s): 84218355 ICD Code: Z51.81 - ENCOUNTER FOR THERAPEUTIC DRUG LEVEL MONITORING; Z79.01 - RETIREMENT (CURRENT) USE OF ANTICOAGULANTS Status: Acute Priority: Medium Current Visit: No (9) Status post CVA SNOMED Code(s): 321651066 ICD Code: Z86.73 - PRSNL HX OF TIA (TIA), AND CEREB INFRC W/O RESID DEFICITS Status: Resolved Priority: Medium Current Visit: No (10) Amputated toe SNOMED Code(s): 237934059 ICD Code: Z89.429 - ACQUIRED ABSENCE OF OTHER TOE(S), UNSPECIFIED SIDE Status: Chronic Priority: Medium Current Visit: No (11) Ingrowing toenail SNOMED Code(s): 063532889 ICD Code: L60.0 - INGROWING NAIL Status: Acute Priority: Medium Current Visit: Yes (12) Ingrowing toenail of right foot SNOMED Code(s): 20448712529516216 ICD Code: L60.0 - INGROWING NAIL Status: Acute Priority: Medium Current Visit: Yes (13) Blood in the urine SNOMED Code(s): 06166022 ICD Code: R31.9 - HEMATURIA, UNSPECIFIED Status: Acute Priority: High Current Visit: Yes (14) Left lower lobe pneumonia SNOMED Code(s): 895006297 ICD Code: J18.1 - LOBAR PNEUMONIA, UNSPECIFIED ORGANISM Status: Acute Priority: High Current Visit: Yes - Patient Summary/Data Consults: Consultations 01/02/19 23:37 OT Evaluation and Treatment [CONS] Routine Please Evaluate and Treat. OT Reason for Consult: Strengthening This query below is only for informational purposes and is not editable. PT Evaluation and Treatment [CONS] Routine Please Evaluate and Treat. PT Reason for Consult: Strengthening This query below is only for informational purposes and is not editable. 01/06/19 07:17 PT Evaluation and Treatment [CONS] Routine Please Evaluate and Treat. PT Reason for Consult: Other (Type Response) Pending Discharge: Yes Special Instructions: please evalauate the pt and give discharge recommendations. Thanks. This query below is only for informational purposes and is not editable. Admission Diagnosis/Problem: Cellulitis - Patient Instructions Diet: Low Sodium, Diabetic Diet Activity: As Tolerated - Discharge Plan *PRESCRIPTION DRUG MONITORING PROGRAM REVIEWED*: Not Applicable *COPY OF PRESCRIPTION DRUG MONITORING REPORT IN PATIENT LESIA: Not Applicable Prescriptions/Med Rec: Lactobacillus Rhamnosus GG [Culturelle] 1 cap PO BID 7 Days #14 cap Levofloxacin 750 mg PO ASDIRECTED 7 Days #3 tablet Home Medications: Home Meds Furosemide [Lasix] 40 mg PO DAILY tablet 09/28/14 [Rx] Aspirin [Adult Low Dose Aspirin EC] 81 mg PO DAILY 07/02/15 [History] Carvedilol [Coreg] 3.125 mg PO BID 07/02/15 [History] Warfarin [Coumadin] 4 mg PO MoWeFr@13 07/02/15 [History] Warfarin [Coumadin] 6 mg PO SuTuThSa@1300 07/02/15 [History] Cholecalciferol (Vitamin D3) [Vitamin D3] 2,000 unit PO DAILY 01/02/19 [History] Escitalopram [Lexapro] 10 mg PO DAILY 01/02/19 [History] Losartan Potassium 75 mg PO DAILY 01/02/19 [History] Simvastatin [Zocor] 10 mg PO BEDTIME 01/02/19 [History] amLODIPine Besylate [Norvasc] 10 mg PO DAILY 01/02/19 [History] metFORMIN HCl [Metformin HCl] 500 mg PO DAILY 01/02/19 [History] Lactobacillus Rhamnosus GG [Culturelle] 1 cap PO BID 7 Days #14 cap 01/06/19 [Rx ] Levofloxacin 750 mg PO ASDIRECTED 7 Days #3 tablet 01/06/19 [Rx] Oxygen Therapy Mode: Room Air Referrals: PCP,None [Primary Care Provider] - - Discharge Summary/Plan Comment DC Time >30 min.: Yes (Total time spent for discharge on date of discharge: Greater than 30 minute) - Patient Data Vitals - Most Recent: Last Vital Signs Temp 36.1 C 01/06/19 03:11 Pulse 56 L 01/06/19 03:11 Resp 18 01/06/19 03:11 BP 105/63 01/06/19 03:11 Pulse Ox 94 L 01/06/19 03:11 Weight - Most Recent: 124.738 kg I&O - Last 24 hours: Intake & Output 01/05/19 01/06/19 01/06/19 22:59 06:59 14:59 Intake Total 1100 Output Total 625 Balance 475 Lab Results - Last 24 hrs: Laboratory Results - last 24 hr 01/06/19 01/06/19 01/06/19 Range/Units 04:00 04:00 04:00 WBC 7.6 (4.5-11.0) K/uL RBC 3.77 (3.30-5.50) M/uL Hgb 11.1 L (12.0-15.0) g/dL Hct 34.0 L (36.0-48.0) % MCV 90 (80-98) fL MCH 29 (27-31) pg MCHC 33 (32-36) % Plt Count 210 (150-400) K/uL Neut % (Auto) 73 H (36-66) % Lymph % (Auto) 17 L (24-44) % Ward % (Auto) 10 H (2-6) % Eos % (Auto) 0 L (2-4) % Baso % (Auto) 0 (0-1) % PT 30.2 H (9.5-12.0) sec INR 2.97 H (0.80-1.20) Sodium 141 (140-148) mmol/L Potassium 3.5 L (3.6-5.2) mmol/L Chloride 106 (100-108) mmol/L Carbon Dioxide 26 (21-32) mmol/L Anion Gap 12.5 (5.0-14.0) mmol/L BUN 26 H (7-18) mg/dL Creatinine 1.6 H (0.6-1.0) mg/dL Est Cr Clr Drug Dosing 30.82 mL/min Estimated GFR (MDRD) 32 L (>60) Glucose 120 H (74-106) mg/dL Calcium 8.7 (8.5-10.1) mg/dL FARNAZ Results - Last 24 hrs: Microbiology 01/02/19 22:35 Aerobic Blood Culture - Preliminary Blood - Arm, Left NO GROWTH AFTER 3 DAYS Anaerobic Blood Culture - Preliminary NO GROWTH AFTER 3 DAYS 01/02/19 22:40 Aerobic Blood Culture - Preliminary Blood - Arm, Left NO GROWTH AFTER 3 DAYS Anaerobic Blood Culture - Preliminary NO GROWTH AFTER 3 DAYS 01/03/19 00:01 Urine Culture - Final Urine, Clean Catch NO GROWTH AFTER 2 DAYS Med Orders - Current: Current Medications Acetaminophen (Tylenol) 650 mg PO Q4H PRN PRN Reason: Pain (Mild 1-3)/fever Last Admin: 01/03/19 01:53 Dose: 650 mg Albuterol (Proventil Neb Soln) 2.5 mg NEB Q4H PRN PRN Reason: Shortness of Breath Amlodipine Besylate (Norvasc) 10 mg PO DAILY [facility] Last Admin: 01/05/19 10:22 Dose: 10 mg Carvedilol (Coreg) 3.125 mg PO BID [facility] Last Admin: 01/05/19 20:36 Dose: 3.125 mg Cholecalciferol (Vitamin D3) 50 mcg PO DAILY [facility] Last Admin: 01/05/19 10:22 Dose: 50 mcg Escitalopram Oxalate (Lexapro) 10 mg PO DAILY [facility] Last Admin: 01/05/19 10:17 Dose: 10 mg Furosemide (Lasix) 40 mg PO DAILY [facility] Last Admin: 01/05/19 10:17 Dose: 40 mg Insulin Human Lispro (Humalog) 0 unit SUBCUT QIDACANDBED [facility]; Protocol Last Admin: 01/06/19 07:41 Dose: Not Given Lactobacillus Rhamnosus (Culturelle) 1 cap PO BID [facility] Last Admin: 01/05/19 20:35 Dose: 1 cap Levofloxacin 250 mg/ (Levofloxacin 500 mg) 750 mg PO Q48H [facility] Last Admin: 01/06/19 07:42 Dose: 750 mg Losartan Potassium (Cozaar) 75 mg PO DAILY [facility] Last Admin: 01/05/19 10:21 Dose: 75 mg Ondansetron HCl (Zofran Odt) 4 mg PO Q6H PRN PRN Reason: Nausea/Vomiting Pantoprazole Sodium (Protonix) 40 mg PO BEDTIME [facility] Last Admin: 01/05/19 20:36 Dose: 40 mg Potassium Chloride (Klor-Con M20) 40 meq PO ONETIME ONE Stop: 01/06/19 08:01 Senna/Docusate Sodium (Senna Plus) 1 tab PO BID PRN PRN Reason: Constipation Simvastatin (Zocor) 10 mg PO BEDTIME [facility] Last Admin: 01/05/19 20:36 Dose: 10 mg Warfarin Sodium (Coumadin) 4 mg PO MoWeFr@1300 [facility] Last Admin: 01/03/19 12:13 Dose: 4 mg Warfarin Sodium 5 mg/ Warfarin (Sodium 1 mg) 6 mg PO SuTuThSa@1300 [facility] Last Admin: 01/05/19 13:48 Dose: 6 mg Discontinued Medications Sodium Chloride (Normal Saline) 1,000 mls @ 500 mls/hr IV ASDIRECTED [facility] Last Admin: 01/02/19 22:45 Dose: 500 mls/hr Sodium Chloride (Normal Saline) 1,000 mls @ 150 mls/hr IV ASDIRECTED [facility] Last Admin: 01/03/19 12:14 Dose: 150 mls/hr Vancomycin HCl 1.5 gm/ Sodium (Chloride) 250 mls @ 150 mls/hr IV Q12H [facility] Last Admin: 01/03/19 02:07 Dose: 150 mls/hr Piperacillin Sod/Tazobactam (Sod 3.375 gm/ Sodium Chloride) 50 mls @ 100 mls/ hr IV Q6H [facility] Last Admin: 01/03/19 05:42 Dose: 100 mls/hr Piperacillin/Tazobactam/ (Dextrose 2.25 gm/ Premix) 50 mls @ 100 mls/hr IV Q6H [facility] Last Admin: 01/05/19 05:52 Dose: 100 mls/hr Vancomycin HCl 1.65 gm/ Sodium (Chloride) 250 mls @ 150 mls/hr IV Q24H [facility] Last Admin: 01/04/19 21:46 Dose: 150 mls/hr Levofloxacin/Dextrose 750 mg/ (Premix) 150 mls @ 150 mls/hr IV Q48H [facility] Last Admin: 01/04/19 23:18 Dose: 150 mls/hr Lidocaine HCl (Xylocaine 2% Jelly) 10 ml MUCMEM ONETIME ONE Stop: 01/02/19 23:12 Last Admin: 01/02/19 23:29 Dose: 10 ml Ondansetron HCl (Zofran) 4 mg IV Q4H PRN PRN Reason: Nausea/Vomiting Pantoprazole Sodium (Protonix Iv) 40 mg IV Q24H [facility] Last Admin: 01/03/19 01:42 Dose: 40 mg - Exam General: Reports: Alert, Oriented Neck: Reports: Supple Lungs: Reports: Clear to Auscultation, Normal Respiratory Effort Cardiovascular: Reports: Regular Rate, Regular Rhythm GI/Abdominal Exam: Normal Bowel Sounds, Soft, Non-Tender, No Organomegaly Back Exam: Reports: Normal Inspection, Full Range of Motion Extremities: Normal Inspection, Normal Range of Motion, Non-Tender, No Pedal Edema, Normal Capillary Refill Skin: Reports: Warm, Dry, Intact Wound/Incisions: Reports: Healing Well Neurological: Reports: No New Focal Deficit Psy/Mental Status: Reports: Alert, Normal Affect, Normal Mood
[2019-01-06] MEDS ORDERED: Potassium Chloride 20 MEQ Tab.ER PO ONE (08:00)
[2019-01-06] MEDS: Lactobacillus Rhamnosus GG (Probiotic) Cap PO SCH (08:30)
[2019-01-06] MEDS: Carvedilol 3.125 MG Tab PO SCH (08:30)
[2019-01-06] MEDS: Escitalopram 10 MG Tab PO SCH (08:30)
[2019-01-06] MEDS: Furosemide 40 MG Tab PO SCH (08:30)
[2019-01-06] MEDS: Cholecalciferol (Vitamin D3) 25 MCG Tab PO SCH (08:31)
[2019-01-06] MEDS: amLODIPine 10 MG Tab PO SCH (08:31)
[2019-01-06] MEDS: Losartan 25 MG Tab PO SCH (09:48)
[2019-01-06 10:09] VITALS: BP 139/50; PULSE 59
== END 2019-01-06 15:22 | DRG 602 ==
LOC: JP.ED 21:45 → JP.2SS 23:38
PROVIDERS: ADMIT Family Medicine; ATTEND Family Medicine
DX: L03.315 Cellulitis of perineum (principal); J18.1 Lobar pneumonia, unspecified organism; R09.02 Hypoxemia; R41.0 Disorientation, unspecified; R50.9 Fever, unspecified; I69.320 Aphasia following cerebral infarction; R53.81 Other malaise; R11.2 Nausea with vomiting, unspecified; R53.1 Weakness; A41.9 Sepsis, unspecified organism; Z68.41 Body mass index [BMI] 40.0-44.9, adult; E11.51 Type 2 diabetes mellitus with diabetic peripheral angiopathy without gangrene; E78.5 Hyperlipidemia, unspecified; I12.9 Hypertensive chronic kidney disease with stage 1 through stage 4 chronic kidney disease, or unspecified chronic kidney disease; N18.9 Chronic kidney disease, unspecified; H91.90 Unspecified hearing loss, unspecified ear; Z66 Do not resuscitate; I10 Essential (primary) hypertension; R32 Unspecified urinary incontinence; E87.6 Hypokalemia; E11.9 Type 2 diabetes mellitus without complications; R06.02 Shortness of breath; L53.9 Erythematous condition, unspecified; I87.2 Venous insufficiency (chronic) (peripheral); R31.9 Hematuria, unspecified; R50.81 Fever presenting with conditions classified elsewhere; L60.0 Ingrowing nail; I35.0 Nonrheumatic aortic (valve) stenosis; H54.7 Unspecified visual loss; E78.00 Pure hypercholesterolemia, unspecified; F32.9 Major depressive disorder, single episode, unspecified; E66.01 Morbid (severe) obesity due to excess calories; E11.22 Type 2 diabetes mellitus with diabetic chronic kidney disease; Z90.89 Acquired absence of other organs; Z86.14 Personal history of Methicillin resistant Staphylococcus aureus infection; Z79.899 Other long term (current) drug therapy; Z79.84 Long term (current) use of oral hypoglycemic drugs; Z88.8 Allergy status to other drugs, medicaments and biological substances; Z79.82 Long term (current) use of aspirin; Z86.73 Personal history of transient ischemic attack (TIA), and cerebral infarction without residual deficits; Z79.01 Long term (current) use of anticoagulants; Z89.429 Acquired absence of other toe(s), unspecified side
CPT/HCPCS: 36415; 71045; 80053; 81001; 83605; 85025; 85610; 87040 ×2; 96360; 99285; J7030; 74176; 80048; 82962; 85027; 87086; 97110-GP; 97162-GP; 97530-GP; A9270-GY; C9113; J1815; J1956; J2543; J3370; J7050

== ENCOUNTER 2022-12-30 18:10 | Emergency (ER) | payer MEDICARE ==
[2022-12-30 19:07] LABS: BASOPHILS ABSOLUTE AUTO 0.05 K/uL (0.00-0.10); BASOPHILS PERCENT AUTO 0.4 % (0.1-1.3); HEMATOCRIT 39.8 % (34.3-46.0); HEMOGLOBIN 13.4 g/dL (11.2-15.5); IMMATURE GRAN ABSOLUTE AUTO 0.07 K/uL (0.00-0.23); IMMATURE GRAN PERCENT AUTO 0.5 % (0.0-0.7); LYMPHOCYTES ABSOLUTE AUTO 0.91 K/uL (0.8-3.3); LYMPHOCYTES PERCENT AUTO 6.4 % (11.4-47.7); MEAN CORPUSCULAR HEMOGLOBIN 29.9 pg (31.6-35.5); MEAN CORPUSCULAR HGB CONC 33.7 g/dL (31.6-35.5); MEAN CORPUSCULAR VOLUME 88.8 fL (81.4-99.0); MONOCYTES ABSOLUTE AUTO 0.89 K/uL (0.20-0.90); MONOCYTES PERCENT AUTO 6.3 % (3.3-12.6); NEUTROPHILS ABSOLUTE AUTO 12.22 K/uL (1.0-7.6); NEUTROPHILS PERCENT AUTO 86.4 % (40.0-78.1); PLATELET COUNT,PLT 213 K/uL (130-375); RED BLOOD CELL COUNT 4.48 M/uL (3.77-5.24); WHITE BLOOD CELL COUNT,WBC 14.1 K/uL (3.2-11.0)
[2022-12-30 19:23] LABS: INR 2.9; PROTHROMBIN TIME 27.9 sec (9.2-10.6)
[2022-12-30 19:42] LABS: C-REACTIVE PROTEIN 8.12 mg/dL (0.0-0.3); CALCIUM 8.7 mg/dL (8.5-10.1); CREATININE 1.8 mg/dL (0.6-1.0); EST CRCL DRUG DOSING (CG) 25.79 mL/min; POTASSIUM,K 4.6 mmol/L (3.6-5.2)
[2022-12-30 19:46] LABS: ANION GAP 11.6 mmol/L (5.0-14.0)
[2022-12-30 19:47] LABS: PHOSPHORUS 2.9 mg/dL (2.5-4.9); TROPONIN I HIGH SENSITIVITY 182.2 pg/mL (<=60.3)
[2022-12-30] MEDS ORDERED: Aspirin 81 MG Tab.Chew PO ONE (20:22)
[2022-12-30] MEDS ORDERED: Sodium Chloride 0.9% 500 ML IV ONE (20:29)
[2022-12-30] MEDS ORDERED: Sodium Chloride 0.9% 10 ML Syringe FLUSH PRN (20:34)
[2022-12-30] MEDS ORDERED: Furosemide 40 MG/4 ML VIAL IVPUSH ONE (20:40)
[2022-12-30 20:58] LABS: BASE EXCESS VENOUS 1.1 mm/L; BICARBONATE,VENOUS 24.3 mmol/L; CARBOXYHEMOGLOBIN 2.7 % (0.0-1.6); METHEMOGLOBIN 0.7 %; O2 SATURATION VENOUS 85.7; OXYHEMOGLOBIN 82.8 %; PCO2 VENOUS 35.5 mm/Hg; PO2 VENOUS 53.1 mm/Hg; TOTAL HEMOGLOBIN 13.1 g/dL (12.0-16.0)
[2022-12-30 21:26] LABS: BILIRUBIN,URINE NEGATIVE (NEGATIVE); COLOR,URINE YELLOW (YELLOW); GLUCOSE,URINE NEGATIVE (NEGATIVE); KETONES,URINE NEGATIVE (NEGATIVE); LEUKOCYTE ESTERASE,URINE SMALL (NEGATIVE); NITRITE,URINE POSITIVE (NEGATIVE); OCCULT BLOOD,URINE NEGATIVE (NEGATIVE); PROTEIN,URINE NEGATIVE (NEGATIVE); UROBILINOGEN,URINE 0.2 EU/dL (0.2-1.0)
[2022-12-30 21:55] LABS: APPEARANCE,URINE SLIGHTLY CLOUDY (CLEAR); RBC,URINE 0-5 (0-5)
[2022-12-30 21:56] LABS: AMORPHOUS SEDIMENT,URINE NOT SEEN; BACTERIA,URINE MANY; EPITHELIAL CELLS,URINE FEW; MUCUS,URINE FEW
[2022-12-30] MEDS ORDERED: cefTRIAXone 1 GM in Sodium Chloride 0.9% 50 ML IV ONE (22:43)
[2022-12-31] MEDS ORDERED: Norepinephrine Bit/D5W Premix 4 MG in Premix Bag 1 BAG IV SCH (01:15)
[2022-12-31 02:08] LABS: LACTIC ACID 1.1 mmol/L (0.4-2.0)
[2022-12-31 05:18] LABS: BASE EXCESS VENOUS 0.6 mm/L; BICARBONATE,VENOUS 25.6 mmol/L; CARBOXYHEMOGLOBIN 2.4 % (0.0-1.6); METHEMOGLOBIN 0.8 %; O2 SATURATION VENOUS 53.2; OXYHEMOGLOBIN 51.5 %; PCO2 VENOUS 45.1 mm/Hg; PH,VENOUS 7.373 (7.350-7.450); TOTAL HEMOGLOBIN 12.9 g/dL (12.0-16.0)
[2022-12-31 05:20] LABS: BASOPHILS ABSOLUTE AUTO 0.04 K/uL (0.00-0.10); BASOPHILS PERCENT AUTO 0.3 % (0.1-1.3); HEMATOCRIT 37.5 % (34.3-46.0); HEMOGLOBIN 12.4 g/dL (11.2-15.5); IMMATURE GRAN ABSOLUTE AUTO 0.08 K/uL (0.00-0.23); IMMATURE GRAN PERCENT AUTO 0.6 % (0.0-0.7); LYMPHOCYTES ABSOLUTE AUTO 1.38 K/uL (0.8-3.3); LYMPHOCYTES PERCENT AUTO 9.7 % (11.4-47.7); MEAN CORPUSCULAR HEMOGLOBIN 29.6 pg (31.6-35.5); MEAN CORPUSCULAR HGB CONC 33.1 g/dL (31.6-35.5); MEAN CORPUSCULAR VOLUME 89.5 fL (81.4-99.0); MONOCYTES ABSOLUTE AUTO 1.34 K/uL (0.20-0.90); MONOCYTES PERCENT AUTO 9.4 % (3.3-12.6); NEUTROPHILS ABSOLUTE AUTO 11.43 K/uL (1.0-7.6); PLATELET COUNT,PLT 231 K/uL (130-375); PO2 VENOUS 33.6 mm/Hg; RED BLOOD CELL COUNT 4.19 M/uL (3.77-5.24); WHITE BLOOD CELL COUNT,WBC 14.3 K/uL (3.2-11.0)
[2022-12-31] MEDS ORDERED: Doxycycline 100 MG in Sodium Chloride 0.9% 100 ML IV ONE (05:26)
[2022-12-31 05:37] LABS: CALCIUM 8.7 mg/dL (8.5-10.1); CREATININE 1.9 mg/dL (0.6-1.0); EST CRCL DRUG DOSING (CG) 24.43 mL/min; POTASSIUM,K 4.6 mmol/L (3.6-5.2)
[2022-12-31 05:48] LABS: ANION GAP 10.6 mmol/L (5.0-14.0)
[2022-12-31 06:27] VITALS: PULSE 60
[2022-12-31 07:14] VITALS: BP 132/65
== END 2022-12-31 07:30 | disposition critical access hospital (66) ==
LOC: JP.ED 18:10
DX: N30.00 Acute cystitis without hematuria (principal); I11.0 Hypertensive heart disease with heart failure; I50.9 Heart failure, unspecified; G31.84 Mild cognitive impairment of uncertain or unknown etiology; R09.02 Hypoxemia; R53.1 Weakness; E11.9 Type 2 diabetes mellitus without complications; E78.00 Pure hypercholesterolemia, unspecified; Z88.8 Allergy status to other drugs, medicaments and biological substances; Z79.82 Long term (current) use of aspirin; Z79.01 Long term (current) use of anticoagulants; Z79.84 Long term (current) use of oral hypoglycemic drugs; Z79.899 Other long term (current) drug therapy; Z86.73 Personal history of transient ischemic attack (TIA), and cerebral infarction without residual deficits; Z20.822 Contact with and (suspected) exposure to COVID-19
CPT/HCPCS: 36415; 51702; 71045; 80048; 81001; 82803; 83605; 83735; 83880; 84100; 84145; 84484; 85025; 85610; 86140; 87086; 87088; 87186; 93005; 94660; 96365; 96366; 96367; 96368; 96375; 99285; A9270; J0696; J1940; J3490; J7040; U0002

== ENCOUNTER 2023-01-19 09:04 | Emergency (ER) | payer MEDICARE ==
[2023-01-19 09:38] VITALS: BP 122/57; PULSE 61
[2023-01-19 09:39] LABS: BASOPHILS ABSOLUTE AUTO 0.04 K/uL (0.00-0.10); BASOPHILS PERCENT AUTO 0.5 % (0.1-1.3); EOSINOPHILS PERCENT AUTO 0.1 % (0.0-5.4); HEMATOCRIT 37.3 % (34.3-46.0); HEMOGLOBIN 12.2 g/dL (11.2-15.5); IMMATURE GRAN ABSOLUTE AUTO 0.04 K/uL (0.00-0.23); IMMATURE GRAN PERCENT AUTO 0.5 % (0.0-0.7); LYMPHOCYTES ABSOLUTE AUTO 0.92 K/uL (0.8-3.3); LYMPHOCYTES PERCENT AUTO 11.1 % (11.4-47.7); MEAN CORPUSCULAR HGB CONC 32.7 g/dL (31.6-35.5); MEAN CORPUSCULAR VOLUME 91.6 fL (81.4-99.0); MONOCYTES ABSOLUTE AUTO 0.52 K/uL (0.20-0.90); MONOCYTES PERCENT AUTO 6.3 % (3.3-12.6); NEUTROPHILS ABSOLUTE AUTO 6.73 K/uL (1.0-7.6); NEUTROPHILS PERCENT AUTO 81.5 % (40.0-78.1); PLATELET COUNT,PLT 256 K/uL (130-375); RED BLOOD CELL COUNT 4.07 M/uL (3.77-5.24); WHITE BLOOD CELL COUNT,WBC 8.3 K/uL (3.2-11.0)
[2023-01-19 09:47] LABS: EOSINOPHILS ABSOLUTE AUTO 0.01 K/uL (0.00-0.40)
[2023-01-19 10:08] LABS: ALANINE AMINOTRANSFERASE,ALT 15 U/L (12-78); ALKALINE PHOSPHATASE 124 U/L (46-116); ANION GAP 9.2 mmol/L (5.0-14.0); ASPARTATE AMNIOTRANSFERASE,AST 16 U/L (15-37); BILIRUBIN TOTAL 0.7 mg/dL (0.2-1.0); BLOOD UREA NITROGEN,BUN 24 mg/dL (7-18); CALCIUM 8.5 mg/dL (8.5-10.1); CARBON DIOXIDE,CO2 26 mmol/L (21-32); CHLORIDE,CL 106 mmol/L (100-108); CREATININE 1.8 mg/dL (0.6-1.0); EST CRCL DRUG DOSING (CG) 24.89 mL/min; ESTIMATED GFR 29 mL/min (>60); GLUCOSE RANDOM 114 mg/dL (74-106); POTASSIUM,K 4.2 mmol/L (3.6-5.2); PROTEIN TOTAL,TP 6.1 g/dL (6.4-8.2); SODIUM,NA 141 mmol/L (140-148)
[2023-01-19 10:46] LABS: APPEARANCE,URINE CLEAR (CLEAR); BILIRUBIN,URINE NEGATIVE (NEGATIVE); COLOR,URINE YELLOW (YELLOW); GLUCOSE,URINE NEGATIVE (NEGATIVE); KETONES,URINE NEGATIVE (NEGATIVE); LEUKOCYTE ESTERASE,URINE NEGATIVE (NEGATIVE); NITRITE,URINE NEGATIVE (NEGATIVE); OCCULT BLOOD,URINE NEGATIVE (NEGATIVE); PH,URINE 5.5 (5.0-8.0); PROTEIN,URINE TRACE mg/dL (NEGATIVE); UROBILINOGEN,URINE 0.2 EU/dL (0.2-1.0)
[2023-01-19] MEDS ORDERED: Furosemide 40 MG/4 ML VIAL IVPUSH ONE (10:52)
[2023-01-19 11:04] LABS: AMORPHOUS SEDIMENT,URINE NOT SEEN; BACTERIA,URINE NOT SEEN; EPITHELIAL CELLS,URINE MODERATE; MUCUS,URINE FEW; RBC,URINE 0-5 (0-5); WBC,URINE 0-5 (0-5)
== END 2023-01-19 12:46 ==
LOC: JP.ED 09:04
DX: I11.0 Hypertensive heart disease with heart failure (principal); I50.9 Heart failure, unspecified; E78.00 Pure hypercholesterolemia, unspecified; E11.9 Type 2 diabetes mellitus without complications; Z88.8 Allergy status to other drugs, medicaments and biological substances; Z79.899 Other long term (current) drug therapy; Z79.82 Long term (current) use of aspirin; Z79.01 Long term (current) use of anticoagulants; Z79.84 Long term (current) use of oral hypoglycemic drugs
CPT/HCPCS: 36415; 71046; 80053; 81001; 83880; 85025; 96374; 99285; J1940